=== PATIENT | male | born 1940 | race Caucasian/White ===

== ENCOUNTER → 2017-11-09 06:56 | Outpatient (CLI) | payer MEDICARE, OTHER, SELFPAY ==
[2017-11-09 08:47] LABS: Alanine Aminotransferase 32 IU/L (21-72); Albumin 4.4 g/dL (3.5-5.0); Albumin Globulin Ratio 1.6 (1.0-2.8); Alkaline Phosphatase 85 U/L (38-126); Aspartate Aminotransferase 24 IU/L (17-59); BUN Creatinine Ratio 21.1 (6-22); Bilirubin Total 0.9 mg/dL (0.2-1.3); Blood Urea Nitrogen 19 mg/dL (9-20); Calcium 9.3 mg/dL (8.4-10.2); Carbon Dioxide 30 mmol/L (22-32); Chloride 102 mmol/L (98-107); Cholesterol 172 mg/dL (140-199); Estimated Glomerular Filt Rate > 60.0 mL/min (>60); Globulin 2.7 g/dL (1.7-4.1); Glucose 95 mg/dL (80-110); HDL Cholesterol 50 mg/dL (40-60); HEMOLYSIS < 15 (0-50); LDL Cholesterol Calculated 92 mg/dL (<100); Potassium 4.9 mmol/L (3.4-5.1); Sodium 143 mmol/L (137-145); Total Protein 7.1 g/dL (6.3-8.2); Triglycerides 149 mg/dL (35-150)
== END ==
PROVIDERS: Family Provider Internal Medicine; PCP Internal Medicine; Visit Provider Internal Medicine
DX: I10 Essential (primary) hypertension (principal); Z85.820 Personal history of malignant melanoma of skin; E78.5 Hyperlipidemia, unspecified; Z12.5 Encounter for screening for malignant neoplasm of prostate
CPT/HCPCS: 36415; 80053; 80061

== ENCOUNTER → 2018-04-19 11:00 | Outpatient (CLI) | payer MEDICARE, OTHER, SELFPAY | PROVIDERS: Family Provider Internal Medicine; PCP Internal Medicine; Visit Provider Urology | DX: R97.20 Elevated prostate specific antigen [PSA] (principal) | CPT/HCPCS: 36415; 84153 ==

== ENCOUNTER → 2018-08-12 09:53 | Outpatient (CLI) | payer MEDICARE, OTHER, SELFPAY ==
[2018-08-12 12:06] LABS: Prostate Specific Antigen 5.11 ng/mL (0.10-4.00)
== END ==
PROVIDERS: PCP Internal Medicine; Visit Provider Internal Medicine
DX: R97.20 Elevated prostate specific antigen [PSA] (principal)
CPT/HCPCS: 36415; 84153

== ENCOUNTER → 2019-03-27 16:14 | Outpatient (CLI) | payer MEDICARE, OTHER, SELFPAY ==
[2019-03-27 17:50] LABS: Alanine Aminotransferase 28 IU/L (<50); Albumin 4.4 g/dL (3.5-5.0); Albumin Globulin Ratio 1.7 (1.0-2.8); Alkaline Phosphatase 70 U/L (38-126); Aspartate Aminotransferase 25 IU/L (17-59); Bilirubin Total 1.2 mg/dL (0.2-1.3); Blood Urea Nitrogen 16 mg/dL (9-20); Calcium 9.6 mg/dL (8.4-10.2); Carbon Dioxide 32 mmol/L (22-32); Chloride 101 mmol/L (98-107); Cholesterol 180 mg/dL (140-199); Estimated Glomerular Filt Rate > 60.0 mL/min (>60); Globulin 2.6 g/dL (1.7-4.1); Glucose 82 mg/dL (80-110); HDL Cholesterol 48 mg/dL (40-60); LDL Cholesterol Calculated 100 mg/dL (<100); Potassium 5.1 mmol/L (3.4-5.1); Sodium 140 mmol/L (137-145); Triglycerides 161 mg/dL (35-150)
[2019-03-27 19:19] LABS: Prostate Specific Antigen 3.45 ng/mL (0.10-4.00)
[2019-03-27 19:20] LABS: HEMOLYSIS < 15 (0-50)
== END ==
PROVIDERS: PCP Internal Medicine; Visit Provider Internal Medicine
DX: E78.5 Hyperlipidemia, unspecified (principal); I10 Essential (primary) hypertension; R97.20 Elevated prostate specific antigen [PSA]
CPT/HCPCS: 36415; 80053; 80061; 84153

== ENCOUNTER → 2019-08-07 11:27 | Outpatient (CLI) | payer MEDICARE, OTHER, SELFPAY ==
[2019-08-07 12:11] LABS: Add Manual Diff / Slide Review NO; Basophils Absolute Auto 100 /uL (0-100); Basophils Percent Auto 0.9 % (0-2); Eosinophils Absolute Auto 200 /uL (0-450); Eosinophils Percent Auto 2.5 % (2-4); Hematocrit 44.4 % (41-53); Hemoglobin 14.8 g/dL (13.5-17.5); Lymphocytes Absolute Auto 1300 /uL (1100-4500); Lymphocytes Percent Auto 15.5 % (25-40); Mean Corpuscular HGB Conc 33.4 % (30-36); Mean Corpuscular Hemoglobin 30.3 PG (26-34); Mean Corpuscular Volume 90.7 fL (80-100); Monocytes Absolute Auto 500 /uL (0-900); Neutrophils Absolute Auto 6200 /uL (1500-7000); Neutrophils Percent Auto 75.1 % (50-75); Platelet Count 184 X10^3/uL (150-400); Red Blood Cell Count 4.89 X10^6/uL (4.5-5.9); Red Cell Distribution Width 13.7 % (11.6-14.8); White Blood Cell Count 8.2 X10^3/uL (4.5-11.0)
[2019-08-07 12:21] LABS: Erythrocyte Sedimentation Rate 8 MM/HR (0-15)
[2019-08-07 12:38] LABS: Alanine Aminotransferase 25 IU/L (<50); Albumin 4.5 g/dL (3.5-5.0); Albumin Globulin Ratio 1.5 (1.0-2.8); Alkaline Phosphatase 88 U/L (38-126); Aspartate Aminotransferase 29 IU/L (17-59); BUN Creatinine Ratio 18.8 (6-22); Blood Urea Nitrogen 15 mg/dL (9-20); Calcium 9.5 mg/dL (8.4-10.2); Carbon Dioxide 28 mmol/L (22-32); Chloride 103 mmol/L (98-107); Estimated Glomerular Filt Rate > 60.0 mL/min (>60); Globulin 3.1 g/dL (1.7-4.1); Glucose 106 mg/dL (80-110); HEMOLYSIS < 15 (0-50); Potassium 4.5 mmol/L (3.4-5.1); Sodium 139 mmol/L (137-145); Total Protein 7.6 g/dL (6.3-8.2)
[2019-08-07 12:39] LABS: C-Reactive Protein Quant < 0.5 mg/dL (<1.0)
== END ==
PROVIDERS: PCP Internal Medicine; Referring Provider Internal Medicine; Visit Provider Internal Medicine
DX: I63.9 Cerebral infarction, unspecified (principal)
CPT/HCPCS: 36415; 80053; 85025; 85651; 86140

== ENCOUNTER 2019-08-07 15:25 | Emergency (ER) | payer MEDICARE, OTHER, SELFPAY ==
--- NOTE | 2019-08-07 15:36 | ED_ITS ---
HPI - Dizziness General Chief Complaint: Dizziness Stated Complaint: WEAKNESS LIGHT HEADED THINKS STROKE Time Seen by Provider: 08/07/19 15:34 Source: patient Mode of arrival: Ambulatory Limitations: no limitations History of Present Illness HPI Narrative: This is a 79-year-old male who comes emergency department with complaint of an episode on Wednesday that he thinks may have been a stroke patient states he was in his garage she felt weak and had to lean up against a wall. He states that he started to black out with his vision. He states he did not pass out but it lasted about 3 or 4 seconds. He has continued to feel lightheaded. He states like maybe balance is off but he states that is been going on for a long time and does not seem to be majorly changed. He denies headache, states he has had some slow vision changes but nothing acute. He denies any facial droop no issues with speech. No numbness, tingling or weakness. No chest pain or shortness of breath. No nausea, no vomiting no issues with bowel movements or urination he spoke with his primary care who has set up an MRI as well as carotid ultrasounds for tomorrow morning and they are T scheduled. He also had lab work drawn earlier today. He has a history of dyslipidemia, essential tremor takes an aspirin daily and has enlarged prostate. He states he has has appendix out and had dental surgery. He denies tobacco, drinks 1 alcoholic drink daily and denies any illicit. He does state his father had a stroke and had a carotid endarterectomy prior to his stroke. He does not feel that his symptoms are worsening. Related Data Home Medications Medication Instructions Recorded Confirmed ASPIRIN (#ASPIRIN) 81 mg PO Q DAY #0 02/24/11 04/06/19 MULTIVITAMIN (One Daily #0 02/24/11 04/06/19 Multivitamin) OMEPRAZOLE 20 mg PO Q DAY #0 03/03/12 04/06/19 chlorhexidine gluconate 0.12 % 1 applictn PO DAILY ml 08/12/18 04/06/19 mouthwash fluoride (sodium) 1.1 % dental 1 applictn DENTAL BID gram 08/12/18 04/06/19 cream saw palmetto 500 mg capsule 500 mg PO DAILY cap 08/12/18 04/06/19 albuterol sulfate 90 mcg/actuation 1 puff INHALATION SEE INSTRUCTIONS 03/27/19 04/06/19 aerosol inhaler PRN gram beclomethasone dipropionate 80 See Rx Instructions INHALATION BID 03/27/19 04/06/19 mcg/actuation aerosol inhaler PRN inhalation turmeric 400 mg capsule 800 mg PO DAILY cap 04/06/19 04/06/19 Previous Rx's Medication Instructions Recorded tamsulosin 0.4 mg capsule 0.4 mg PO BID #180 tab 10/24/18 rosuvastatin 40 mg tablet See Rx Instructions .ROUTE 04/17/19 .COMPLEX #90 tablet primidone 50 mg tablet 50 mg PO BEDTIME #90 tab 05/22/19 Allergies Allergy/AdvReac Type Severity Reaction Status Date / Time No Known Allergies Allergy Uncoded 04/06/19 13:32 Review of Systems Review of Systems ROS Unobtainable: All systems reviewed & are unremarkable except as noted in HPI and below Patient History Medical History Lala's esophagus (Chronic) Benign prostatic hyperplasia with urinary obstruction (Chronic 10/24/13) Cardiac arrhythmia (Chronic) Elevated prostate specific antigen (PSA) (Chronic 08/20/15) Essential hypertension (Chronic) Essential tremor (Chronic 02/22/17) Gastroesophageal reflux disease (Chronic) History of malignant melanoma (Inactive 02/16/14) Hyperlipidemia (Chronic 09/26/13) Mild intermittent asthma without complication (Chronic 06/29/13) Surgical History History of esophagogastroduodenoscopy (EGD) (Resolved 01/27/17) Status post appendectomy (Resolved) Status post tonsillectomy and adenoidectomy (Resolved) Social History marital status: number of children: 2 (4 total.) household members: spouse lives independently: Yes caregiver/support person: No housing: house pets and animals: No education level: college occupational status: other (Retired) current occupational exposures/hazards: No Previous occupational history: Sales [employer]ational: [employer] leisure activities: other (turner and former automatic, [employer], religious.) Smoking Status: Former smoker Tobacco: How many years used: 25 Smokeless tobacco user: other (Cigarettes) quit status: quit date established (~1996) second hand exposure: No alcohol intake: current (Drink every 5 days.) substance use type: does not use Smoking Status: Former smoker Exam Narrative Exam Narrative: GEN: well nourished, well appearing male, alert and oriented x 3, patient appears to be in mild distress. HEENT: Atraumatic, pupils are equal round reactive to light, extraocular movements are intact, nares are clear, TMs are clear with no fluid, there is no conjunctival pallor. Throat is clear without any exudates, erythema, tonsillar enlargement or uvular deviation, no facial droop. HEART: Regular rate and rhythm without murmur, clicks, rubs. LUNGS:Lungs clear to auscultation, no wheezes, rales, crackles, chest moves symmetrically ABD:bowel sounds normal, soft, non-tender, no guarding, rebound, rigidity, no masses noted, no hepatosplenomegaly :No CVA tenderness MSCL: Non-tender, no muscle atrophy, muscles strength 5/5 upper and lower extremities, full range of motion, normal gait NEURO:CN 2-12 intact, sensation normal, reflexes 2/4 upper and lower extremities. finger nose finger test normal, heel harrison test normal SKIN: no rash, no erythema, no petechiea Initial Vital Signs Initial Vital Signs: Vital Signs Temperature 98.1 F 08/07/19 15:38 Pulse Rate 98 H 08/07/19 15:38 Respiratory Rate 13 08/07/19 15:38 Blood Pressure 169/74 H 08/07/19 15:38 Pulse Oximetry 98 08/07/19 15:38 Scores NIH Stroke Scale Level of Conciousness: Alert, keenly responsive Ask month/age: Answers both questions correctly. Open/close eyes, close hand: Performs both tasks correctly Best gaze horizontal: Normal Visual cheung: No visual loss Facial palsy: Normal symetrical movement Left arm drift: No drift for full 10 sec Right arm drift: No drift for full 10 sec Left leg drift: No drift for full 10 sec Right leg drift: No drift for full 10 sec Limb ataxia: Absent Sensory on face/arms/legs: Normal, no sensory loss Best language: No aphasia, normal Dysarthria: Normal Extinction or inattention: No abnormality Total NIH Stroke scale score: 0 Course Orders Ordered: ED Orders 08/07/19 15:40 Troponin I Stat 08/07/19 15:47 EKG-12 Lead Stat 08/07/19 16:04 CT head/brain wo con Stat XR chest 1V Stat Discontinued Medications Sodium Chloride (Normal Saline 0.9%) 1,000 mls @ 1,000 mls/hr IV BOLUS ONE Stop: 08/07/19 17:02 Last Admin: 08/07/19 16:34 Dose: 1,000 mls/hr Documented by: JOHANNY Vital Signs Vital signs: Vital Signs - 8 hr 08/07/19 15:38 08/07/19 16:49 Temperature 98.1 F Pulse Rate 98 H 79 Respiratory Rate 13 16 Blood Pressure 169/74 H Blood Pressure [Right Arm] 127/60 Pulse Oximetry 98 95 MDM - Dizziness Lab Data Labs: Lab Results 08/07/19 Range/Units 15:40 Troponin I < 0.012 (0.01-0.034) ng/mL Imaging Data CT scan - head: Radiologist's Impression: Arsenio Granda 79 M 1940 [place] [address] CT Scan Report Signed Patient: Arsenio Granda EMR#: [id number] : 2Acct:[id number] Age/Sex: 79 / MDate of Service: 08/07/19 Loc: ED Accession Number: [id number] Procedure: CT head/brain wo con Ordering Provider: Tammi Rodriguez D.O. PROCEDURE: CT HEAD/BRAIN WO CON INDICATIONS: dizziness, presyncope TECHNIQUE: Noncontrast 4.5 mm thick angled axial sections acquired from the foramen magnum to the vertex, with coronal and sagittal reformats. For radiation dose reduction, the following was used: automated exposure control, adjustment of mA and/or kV according to patient size. COMPARISON: None. FINDINGS: Image quality: Excellent. CSF spaces: Basal cisterns are patent. No extra-axial fluid collections. The ventricles are symmetric in size and shape. Brain: No intracranial bleeds or masses. There is cerebral volume loss for age, with resultant ventricular and sulcal prominence. There are periventricular and deep white matter chronic small vessel ischemic changes. There is intracranial internal carotid artery atherosclerosis. Skull and face: Calvarium and visualized facial bones appear intact, without suspicious lesions. Sinuses: Visualized sinuses and mastoids are clear. IMPRESSION: No acute intracranial findings. Dictated by: Zoie Nolen M.D. on 08/07/2019 at 16:19 Approved by: Zoie Nolen M.D. on 08/07/2019 at 16:20 Chest x-ray: Radiologist's Impression: Arsenio Granda M [address] [address] XRay Report Signed Patient: Arsenio Granda EMR#: [id number] : 1940cct:[id number] Age/Sex: 79 / MDate of Service: 08/07/19 Loc: ED Accession Number: [id number] Procedure: XR chest 1V Ordering Provider: Tammi Rodriguez D.O. PROCEDURE: XR CHEST 1V INDICATIONS: dizziness, presyncope TECHNIQUE: One view of the chest was acquired. COMPARISON: [facility], CHEST 2 VIEW, 12/09/2015, 14:57. FINDINGS: Surgical changes and devices: None. Lungs and pleura: Lungs are clear. No pleural effusions or pneumothorax. Mediastinum: Mediastinal contours appear normal. Heart size is normal. Bones and chest wall: No suspicious bony lesions. Overlying soft tissues appear unremarkable. IMPRESSION: No acute cardiopulmonary findings. Dictated by: Zoie Nolen M.D. on 08/07/2019 at 16:17 Approved by: Zoie Nolen M.D. on 08/07/2019 at 16:18 ECG Data Attestation: I personally reviewed and interpreted this ECG as follows: Interpretation: Sinus rhythm with supraventricular complexes. Rate of 86, P are 155, QRS of 93 and QTC of 405. No ST elevation is noted. No consistent ST depression is noted. MDM Narrative Medical decision making narrative: Patient has when he describes and sounds more like a presyncopal type episode than stroke-like episode. His NIH is 0. Head CT and chest x-ray are negative. Troponin is negative, CBC and CMP obtained today but prior to ER visit do not show acute findings. EKG does not show any arrhythmias are clear changes. Discussed patient's findings here today with Dr. Esquivel who has already ordered an MRI and carotid ultrasounds and is scheduled for tomorrow morning. Patient's findings are more consistent with a presyncopal type episode but does seem appropriate to workup additionally. Patient's vital signs are appropriate here, he is able to ambulate the department without any issue and we discussed signs and symptoms to watch for and reasons to return. Discharge Plan Departure Patient Disposition: Home Clinical Impression: Pre-syncope Discharge Date/Time: 08/07/19 17:11 Instructions: DI for Dizziness-Nonvertigo Activity Restrictions/Additional Instructions: Follow up at your appointment tomorrow for MRI and carotid US. Your imaging and labs from today do not show any acute findings. Return to the emergency department for new or worsening symptoms passing-out worsening lightheadedness, new vision changes, new chest pain, shortness of breath, persistent vomiting, black or bloody stools, new numbness, weakness or tingling or other new or concerning symptoms. Prescriptions: No Action ASPIRIN (#ASPIRIN) 81 mg PO Q DAY Qty: 0 RF: 0 MULTIVITAMIN (One Daily Multivitamin) Qty: 0 RF: 0 OMEPRAZOLE 20 mg PO Q DAY Qty: 0 RF: 0 tamsulosin [Flomax] 0.4 mg capsule 0.4 mg PO BID Qty: 180 RF: 3 rosuvastatin 40 mg tablet See Rx Instructions .ROUTE .COMPLEX Qty: 90 RF: 3 primidone 50 mg tablet 50 mg PO BEDTIME Qty: 90 RF: 1 Qvar 80 mcg/actuation aerosol See Rx Instructions inhalation BID PRNRF: 0 albuterol sulfate [Proventil HFA] 90 mcg/actuation HFA aerosol inhaler 1 puff inhalation SEE INSTRUCTIONS PRNRF: 0 turmeric 400 mg capsule 800 mg PO DAILY RF: 0 Denta 5000 Plus 1.1 % cream 1 applictn Dental BID RF: 0 chlorhexidine gluconate 0.12 % mouthwash 1 applictn PO DAILY RF: 0 saw palmetto 500 mg capsule 500 mg PO DAILY RF: 0 Referrals: Henok Esquivel MD [Primary Care Provider] -
[2019-08-07 15:38] VITALS: BP 169/74; PULSE 98; RESP 13; TEMP 36.7; O2SAT 98
--- NOTE | 2019-08-07 16:04 | DI.CT.S_ITS ---
PROCEDURE: CT HEAD/BRAIN WO CON INDICATIONS: dizziness, presyncope TECHNIQUE: Noncontrast 4.5 mm thick angled axial sections acquired from the foramen magnum to the vertex, with coronal and sagittal reformats. For radiation dose reduction, the following was used: automated exposure control, adjustment of mA and/or kV according to patient size. COMPARISON: None. FINDINGS: Image quality: Excellent. CSF spaces: Basal cisterns are patent. No extra-axial fluid collections. The ventricles are symmetric in size and shape. Brain: No intracranial bleeds or masses. There is cerebral volume loss for age, with resultant ventricular and sulcal prominence. There are periventricular and deep white matter chronic small vessel ischemic changes. There is intracranial internal carotid artery atherosclerosis. Skull and face: Calvarium and visualized facial bones appear intact, without suspicious lesions. Sinuses: Visualized sinuses and mastoids are clear. IMPRESSION: No acute intracranial findings. Dictated by: Zoie Nolen M.D. on 08/07/2019 at 16:19 Approved by: Zoie Nolen M.D. on 08/07/2019 at 16:20
--- NOTE | 2019-08-07 16:04 | DI.RAD.S_ITS ---
PROCEDURE: XR CHEST 1V INDICATIONS: dizziness, presyncope TECHNIQUE: One view of the chest was acquired. COMPARISON: [facility], , CHEST 2 VIEW, 12/09/2015, 14:57. FINDINGS: Surgical changes and devices: None. Lungs and pleura: Lungs are clear. No pleural effusions or pneumothorax. Mediastinum: Mediastinal contours appear normal. Heart size is normal. Bones and chest wall: No suspicious bony lesions. Overlying soft tissues appear unremarkable. IMPRESSION: No acute cardiopulmonary findings. Dictated by: Zoie Nolen M.D. on 08/07/2019 at 16:17 Approved by: Zoie Nolen M.D. on 08/07/2019 at 16:18
[2019-08-07 16:31] LABS: Troponin I < 0.012 ng/mL (0.01-0.034)
[2019-08-07] MEDS: SODIUM CHLORIDE 0.9% 1,000 ML 1000 ML IV (16:34)
[2019-08-07 16:49] VITALS: BP 127/60; PULSE 79; RESP 16; O2SAT 95
== END 2019-08-07 17:11 | disposition home or self-care (01) ==
PROVIDERS: Emergency Provider Emergency Medicine; PCP Internal Medicine
DX: R55 Syncope and collapse (principal); R42 Dizziness and giddiness; N40.0 Benign prostatic hyperplasia without lower urinary tract symptoms; Z79.82 Long term (current) use of aspirin; I63.9 Cerebral infarction, unspecified
CPT/HCPCS: 36415; 70450; 71045; 80053; 84484; 85025; 85651; 86140; 93005; 99284; 99285

== ENCOUNTER → 2019-08-08 08:56 | Outpatient (CLI) | payer MEDICARE, OTHER, SELFPAY ==
--- NOTE | 2019-08-08 08:57 | DI.US.S_ITS ---
PROCEDURE: US CAROTID DOPPLER BI INDICATIONS: CVA TECHNIQUE: Color and pulse Doppler interrogation was performed of both carotid systems, with image documentation and velocity measurements. COMPARISON: None. FINDINGS: Stenosis calculations are based on SRU (Society of Radiologists in Ultrasound) criteria. Right side: Brachial blood pressure: 131/74 mm Hg. Common carotid artery peak systolic velocity: 81 cm/sec. Internal carotid artery peak systolic velocity: 96 cm/sec. Internal carotid artery end diastolic velocity: 31 cm/sec. External carotid artery peak systolic velocity: 75 cm/sec. ICA/CCA peak systolic ratio: 1.2. Rahman scale imaging description: Mild soft and calcific plaquing Percent internal carotid artery stenosis: Less than 50% stenosis. Vertebral artery: Flow direction is antegrade. Left side: Brachial blood pressure: 134/74 mm Hg. Common carotid artery peak systolic velocity: 114 cm/sec. Internal carotid artery peak systolic velocity: 88 cm/sec. Internal carotid artery end diastolic velocity: 32 cm/sec. External carotid artery peak systolic velocity: 82 cm/sec. ICA/CCA peak systolic ratio: 0.8. Rahman scale imaging description: Mild calcific and soft plaque Percent internal carotid artery stenosis: Less than 50% stenosis. Vertebral artery: Flow direction is antegrade. IMPRESSION: Less than 50% stenosis at the proximal internal carotid arteries bilaterally. Vertebral arterial flow is antegrade in direction bilaterally. Dictated by: Jhonathan Barreto M.D. on 08/08/2019 at 10:49 Approved by: Jhonathan Barreto M.D. on 08/08/2019 at 10:51
--- NOTE | 2019-08-08 08:57 | DI.MRI.S_ITS ---
PROCEDURE: MR STROKE Pre- and post-contrast brain MRI, non-contrast brain MR angiogram, pre- and postcontrast neck MR angiogram INDICATIONS: stroke protocol TECHNIQUE: Brain: Noncontrast axial T1 spin echo, axial T2 fast spin echo, sagittal and axial FLAIR, coronal T2 fast spin echo, axial gradient echo, axial diffusion and ADC through the brain. After the administration of contrast, axial 3D VIBE of the cranial vasculature and brain. Brain MRA: Non-contrast 3-D time of flight MR angiogram, with multiple osyynbh-whfppuyql-oqytcchxzz (MIP) reformats performed. Neck MRA: Axial and sagittal TruFISP through the neck. Coronal dynamic MR angiogram during administration of contrast in the arterial and venous phases, with 3-dimenstional igccgmp-tnfglzwwu-mvseyvgwyz (MIP) reformats constructed from subtraction images. COMPARISON: [facility], CT, CT HEAD/BRAIN WO CON, 08/07/2019, 16:03. FINDINGS: Image quality: Excellent. BRAIN: CSF spaces: Ventricles are normal in size and shape. Basal cisterns are patent. No extra-axial fluid collections. Brain: No intracranial bleeds or mass effects. There is mild diffuse cerebral volume loss. Rahman-white matter interface is normal. Diffusion weighted images show no acute ischemic insults. Brainstem appears normal. Normal intravascular flow voids are present. No abnormal intracranial enhancement. Skull and face: Calvarial marrow signal is normal. Orbits appear normal. Sinuses: There is mild bilateral maxillary sinus mucosal thickening. Mastoids are clear. The BRAIN MR ANGIOGRAM: Anterior circulation: Intracranial internal carotid arteries are normal in size and enhancement. The flow within the paired anterior cerebral arteries is normal and symmetric. The flow within the middle cerebral arteries is normal and symmetric. The anterior communicating artery is seen. No stenoses, occlusions, or aneurysms. Posterior circulation: The distal right vertebral artery is not well-seen, possibly terminating in a posterior inferior cerebellar artery. Basilar artery is patent. The flow within the posterior cerebral arteries is normal and symmetric. No stenoses, occlusions, or aneurysms. NECK MR ANGIOGRAM: Carotids: Great vessels demonstrate a conventional anatomy as they arise from the aortic arch. The origins of the common carotid arteries appear patent. The calibers and courses of both common carotid arteries are normal. The bifurcation regions appear normal bilaterally. The internal carotid arteries demonstrate normal course and caliber. Posterior circulation: The origins of the vertebral arteries appear patent. Distal right vertebral artery it appears to terminate in a posterior inferior cerebellar artery. Distal left vertebral artery is patent. Basilar artery is patent. Miscellaneous: Subclavian arteries appear patent. Pre-contrast images through the neck demonstrate bilateral thyroid nodules measuring less than 10 mm diameter. The IMPRESSION: BRAIN MRI: 1. No acute process. No recent infarct. 2. Mild diffuse cerebral volume loss. 3. Mild maxillary sinus mucosal thickening bilaterally. BRAIN MR ANGIOGRAM: Negative cerebral MR angiography. NECK MR ANGIOGRAM: 1. No internal carotid artery stenosis bilaterally. 2. Patent bilateral vertebral arteries. Dictated by: Alesha Nolasco M.D. on 08/08/2019 at 10:43 Approved by: Alesha Nolasco M.D. on 08/08/2019 at 10:47
== END ==
PROVIDERS: PCP Internal Medicine; Referring Provider Internal Medicine; Visit Provider Internal Medicine
DX: I63.9 Cerebral infarction, unspecified (principal); I65.23 Occlusion and stenosis of bilateral carotid arteries
CPT/HCPCS: 70548; 70553; 93880

== ENCOUNTER → 2019-10-19 07:50 | Outpatient (CLI) | payer MEDICARE, OTHER, SELFPAY ==
[2019-10-19 08:14] LABS: Add Manual Diff / Slide Review NO; Basophils Absolute Auto 100 /uL (0-100); Basophils Percent Auto 0.7 % (0-2); Eosinophils Absolute Auto 600 /uL (0-450); Eosinophils Percent Auto 6.8 % (2-4); Hematocrit 44.4 % (41-53); Hemoglobin 15.3 g/dL (13.5-17.5); Lymphocytes Absolute Auto 1500 /uL (1100-4500); Lymphocytes Percent Auto 17.9 % (25-40); Mean Corpuscular HGB Conc 34.4 % (30-36); Mean Corpuscular Hemoglobin 31.3 PG (26-34); Monocytes Absolute Auto 500 /uL (0-900); Monocytes Percent Auto 5.9 % (3-14); Neutrophils Absolute Auto 5800 /uL (1500-7000); Neutrophils Percent Auto 68.7 % (50-75); Platelet Count 184 X10^3/uL (150-400); Red Blood Cell Count 4.88 X10^6/uL (4.5-5.9); Red Cell Distribution Width 13.4 % (11.6-14.8); White Blood Cell Count 8.5 X10^3/uL (4.5-11.0)
[2019-10-19 08:47] LABS: Alanine Aminotransferase 26 IU/L (<50); Albumin 4.7 g/dL (3.5-5.0); Alkaline Phosphatase 80 U/L (38-126); Aspartate Aminotransferase 25 IU/L (17-59); BUN Creatinine Ratio 18.2 (6-22); Bilirubin Total 1.1 mg/dL (0.2-1.3); Blood Urea Nitrogen 16 mg/dL (9-20); Calcium 9.8 mg/dL (8.4-10.2); Carbon Dioxide 31 mmol/L (22-32); Chloride 101 mmol/L (98-107); Estimated Glomerular Filt Rate > 60.0 mL/min (>60); Globulin 2.4 g/dL (1.7-4.1); Glucose 134 mg/dL (80-110); HEMOLYSIS < 15 (0-50); Magnesium 2.2 mg/dL (1.6-2.3); Potassium 4.1 mmol/L (3.4-5.1); Sodium 137 mmol/L (137-145); Total Protein 7.1 g/dL (6.3-8.2)
[2019-10-19 09:16] LABS: TSH w/ Reflex to FT4 1.94 uIU/mL (0.47-4.68)
== END ==
PROVIDERS: PCP Internal Medicine; Referring Provider Internal Medicine; Visit Provider Internal Medicine
DX: I10 Essential (primary) hypertension (principal); I49.1 Atrial premature depolarization
CPT/HCPCS: 36415; 80053; 83735; 84443; 85025

== ENCOUNTER → 2019-10-30 11:00 | Outpatient (CLI) | payer MEDICARE, OTHER, SELFPAY ==
--- NOTE | 2019-11-16 09:24 | PM.CARDMON.1 ---
Inside Sales Person Report Referral & Results Date Patient Seen: 10/30/19 Requesting provider: Henok Esquivel Indication: Cardiac arrhythmia Duration of monitoring (days): 7 Diary information: There were 2 patient triggered events and 2 patient diary entries These events were variously associated (within 45 seconds) with sinus rhythm, supraventricular ectopic beats, ventricular ectopic beats and a run of ventricular trigeminy Data: Minimum heart rate identified was 45 beats per minute at 02:11 on 10/31/2019 Maximum sinus heart rate was 133 beats per minute at 08:55 on 11/03/2019 Maximum overall heart rate was 187 beats per minute at 08:00 on 11/05/2019, during a 5 beat run of SVT Patient had rare PACs but more occasional PVCs including about 3.1% of identified beats and a 30.2nd run of ventricular trigeminy and a 12nd run of ventricular bigeminy Patient had 11 runs of SVT/atrial tachycardia with the fastest being 187 beats per minute during a 5 beat run, as above. The longest was 7 beats at a rate of 110 beats per minute which is more likely atrial tachycardia The computer identified episodes of second-degree AV block Mobitz type 1 however upon closer review I am not convinced these were actually second-degree AV block, rather more likely sinus arrhythmia Impression: Significant burden of PVCs but otherwise no significant dysrhythmias identified Clinical correlation suggested
== END ==
PROVIDERS: Family Provider Internal Medicine; PCP Internal Medicine; Referring Provider Internal Medicine; Visit Provider Internal Medicine
DX: I49.9 Cardiac arrhythmia, unspecified (principal)
CPT/HCPCS: 0296T; 0298T

== ENCOUNTER → 2019-11-03 11:37 | Outpatient (CLI) | payer MEDICARE, OTHER, SELFPAY ==
[2019-11-03 22:29] LABS: COVID19 Sendout Not Detected (Not Detect)
== END ==
PROVIDERS: Family Provider Internal Medicine; PCP Internal Medicine; Visit Provider Nurse Practitioner
DX: Z01.812 Encounter for preprocedural laboratory examination (principal)
CPT/HCPCS: 87635

== ENCOUNTER → 2019-11-06 09:59 | Outpatient (CLI) | payer MEDICARE, OTHER, SELFPAY ==
--- NOTE | 2019-11-06 10:01 | DI.NM.S_ITS ---
PROCEDURE: NM VIKTOR PERF SPECT REST & STR Rest and exercise myocardial perfusion SPECT with gated imaging and ejection fraction RADIOPHARMACEUTICAL: 9.8 mCi Tc-99m sestamibi IV at rest and 25.7 mCi Tc-99m sestamibi IV at peak exercise. A oneday-protocol was performed. INDICATIONS: chest pain TECHNIQUE: Radiopharmaceutical was injected at peak stress test, and also at rest. SPECT images were obtained. SPECT myocardial perfusion images were displayed in short axis, horizontal long axis, and vertical long axis views. Gated images were reviewed using [employer] software. COMPARISON: None. CARDIAC STRESS: A standard Alex treadmill exercise tolerance test was performed by the patient under the supervision of an attending staff. The patient exercised for 2 minutes and 57 seconds; functional aerobic impairment (AYDEN) is +39%. Hemodynamic data: There is normal blood pressure and heart rate response to exercise stress. Patient achieved 117% of maximum predicted heart rate at peak exercise. Symptoms: Patient denied chest pain during exercise. EKG: No diagnostic EKG changes of ischemia; occasional PACs with exercise. FINDINGS: Raw data: There is good myocardial labeling by radiotracer. No significant motion artifacts. Hwmd-xw-hamhj ratio is 0.33 (normal is less than 0.38 for sestamibi tracer, and less than 0.50 for thallium tracer). Left ventricle function: Gated images demonstrate normal left ventricle wall thickening. No segmental wall motion abnormality. No transient ischemic dilation; TID is 1.02 (normal less than 1.3). The left ventricle resting end-diastolic volume is 139 mL. Left ventricle stress ejection fraction is 52%; normal values are above 45%. Myocardial perfusion: Severe fixed inferior wall defect that resolves with prone imaging suggesting diaphragmatic attenuation. No ischemia or infarction. IMPRESSION: Low risk, normal treadmill nuclear stress test Borderline hypertensive response to exercise. 1) No perfusion evidence of ischemia or infarction. 2) Normal left ventricular size, wall motion, and systolic function (EF post stress 52%). 3) No ECG evidence of ischemia. 4) No angina during the study. 5) Moderately to severely reduced exercise capacity (4.6 METS, AYDEN +39%). Target heart rate reached. 6) Borderline hypertensive response to exercise (rest BP 124/74mmHg, max BP 210/90mmHg). 7) No prior nuclear stress test available for comparison. Dictated by: Ana Smith MD on 11/06/2019 at 16:38 Approved by: Ana Smith MD on 11/06/2019 at 16:43
--- NOTE | 2019-11-06 14:54 | PM.TREADMILL ---
Cardiac Stress Test Report Referral & Results Date Patient Seen: 11/06/19 Requesting provider: Henok Esquivel Indication: Dyspnea, dysrhythmia Rest ECG: Unremarkable Procedure Note: Today following both written and verbal informed consent the patient was exercised according to a standard Alex protocol patient went for a total of 2 minutes 57 seconds achieving a maximum heart rate of 168 maximum systolic blood pressure of 210. This is approximately 4.6 METS. Exercise was terminated at this point because of targets were met patient was unable to continue. Patient was also given Cardiolite through a previously started Hep-Lock IV by the diagnostic imaging staff approximately 1 minute prior to the cessation of exercise. With exercise or no ST-T segment changes Patient had scattered PVCs including ventricular couplets. Patient also showed evidence of apparently conducted sinus beats in his PVC pattern. There also rare PACs in recovery Functional aerobic impairment rates 40% on the sedentary scale, 50% on the active scale Impression: No obvious ischemia. Dysrhythmias above Please see perfusion imaging report for details regarding ischemia Limited exercise capacity as above Please note: Actual ECG tracings can be found in the PACS system.
== END ==
PROVIDERS: Family Provider Internal Medicine; PCP Internal Medicine; Referring Provider Internal Medicine; Visit Provider Internal Medicine
DX: R07.9 Chest pain, unspecified (principal); I49.1 Atrial premature depolarization; I10 Essential (primary) hypertension; R06.00 Dyspnea, unspecified
CPT/HCPCS: 78452; 93016; 93017; 93018; A9502

== ENCOUNTER → 2019-11-22 13:43 | Outpatient (CLI) | payer MEDICARE, OTHER, SELFPAY ==
--- NOTE | 2019-11-22 13:54 | DI.ECHO.S_ITS ---
Echocardiogram Report + + :Name: SIVAKUMAR LANDON Study Date: 11/22/2019 Height: 71 in : :[facility] Weight: 191 lb : : Gender: Male BSA: 2.1 m2 : :: 1940 Age: 79 yrs BP: 138/70 mmHg: :Reason For Study: CHEST PAIN : :Ordering Physician: GABI, : :ALEJANDRO Performed By: Joana Rincon : :Referring: ALEJANDRO ASHLEY R : + + Interpretation Summary The left ventricle is normal in size and wall thickness. Left ventricular systolic function is mildly reduced. The ejection fraction is estimated to be 40-45%. There is mild global hypokinesis of the left ventricle. Diastolic parameters suggest a relaxation abnormality of the left ventricle, consistent with probable normal filling pressures. The right ventricle is normal in size and function. The right ventricular systolic pressure is estimated to be at least 17 mmHg based on an estimated right atrial pressure of 3 mm Hg. The left atrium is mildly dilated. The right atrium is mildly dilated. There is no significant valvular heart disease. The aortic root is normal size. Procedure: A two-dimensional transthoracic echocardiogram with color flow and Doppler was performed. The study quality was technically adequate. There is no prior echocardiogram noted for this patient. The heart rate ranged between 62-75 bpm during the study. The patient had occasional PACs during the exam. The patient had occasional PVCs during the exam. Left Ventricle: The left ventricle is normal in size and wall thickness. Left ventricular systolic function is mildly reduced. The ejection fraction is estimated to be 40-45%. Left ventricular global longitudinal strain average is -15.0%. There is mild global hypokinesis of the left ventricle. Diastolic parameters suggest a relaxation abnormality of the left ventricle, consistent with probable normal filling pressures. Right Ventricle: The right ventricle is normal in size and function. Atria: The left atrium is mildly dilated. The right atrium is mildly dilated. There is no Doppler evidence for an interatrial shunt. Mitral Valve: The mitral valve is normal in structure and function. There is trace mitral regurgitation. Aortic Valve: The aortic valve is trileaflet. The aortic valve opens well. There is no aortic valve stenosis. No aortic regurgitation is present. Tricuspid Valve: The tricuspid valve is normal in structure and function. There is mild tricuspid regurgitation. The right ventricular systolic pressure is estimated to be at least 17 mmHg based on an estimated right atrial pressure of 3 mm Hg. Pulmonic Valve: The pulmonic valve is normal in structure and function. There is no pulmonic valvular regurgitation. There is no significant valvular heart disease. Great Vessels: The aortic root is normal size. The ascending aorta could not be visualized. The IVC is of normal diameter and collapses greater than 50% with a sniff. This suggests a low right atrial pressure of 3 mm Hg. Pericardium/ Pleura There is no pericardial effusion. There is no pleural effusion. MMode/2D Measurements & Calculations LVIDd: 5.6 cm LVOT diam: 2.3 cm LVIDs: 4.7 cm Ao root diam: 2.9 cm FS: 16.5 % EPSS: 1.0 cm IVSd: 1.0 cm LVPWd: 1.0 cm LV bishop. diameter/BSA (cm/m^2): 2.7 LV sys. diameter/BSA (cm/m^2): 2.3 LA A2 area: 22.6 cm2 RA long axis: 5.3 cm LA A4 area: 22.0 cm2 RA area: 21.3 cm2 LA length (vol): 5.3 cm RA vol: 73.8 ml LA vol: 79.1 ml RA : 35.7 ml/m2 LA vol index: 38.3 ml/m2 IVC diam: 1.8 cm RVD1 (basal): 3.3 cm TAPSE: 2.1 cm Doppler Measurements & Calculations Ao V2 max: 110.1 cm/sec LVOT Max Eagle: 76.7 cm/sec Ao V2 mean: 79.9 cm/sec LV V1 max P.4 mmHg Ao max P.8 mmHg LV V1 VTI: 16.6 cm Ao mean P.8 mmHg STEFFEN(I,D): 3.0 cm2 Ao V2 VTI: 22.8 cm STEFFEN(V,D): 2.8 cm2 sev ratio: 0.73 STEFFEN indexed to BSA (cm^2/m^2): 1.4 MV E max eagle: 66.5 cm/sec TR max eagle: 189.8 cm/sec MV A max eagle: 86.9 cm/sec TR max P.4 mmHg MV E/A: 0.77 PA V2 max: 69.0 cm/sec Med Peak E' Eagle: 8.7 cm/sec PA V2 mean: 49.9 cm/sec E/E' med: 7.6 PA mean P.1 mmHg Lat Peak E' Eagle: 6.8 cm/sec PA pr(Accel): 27.6 mmHg E/E' lat: 9.8 E/e' average: 8.7 MV dec time: 0.24 sec SV(LVOT): 67.4 ml Reading Physician:05:03 PM
== END ==
PROVIDERS: Family Provider Internal Medicine; PCP Internal Medicine; Referring Provider Internal Medicine; Visit Provider Internal Medicine
DX: I07.1 Rheumatic tricuspid insufficiency (principal); R07.9 Chest pain, unspecified; I49.1 Atrial premature depolarization; I10 Essential (primary) hypertension
CPT/HCPCS: 93306

== ENCOUNTER → 2020-06-25 10:57 | Outpatient (CLI) | payer MEDICARE, OTHER, SELFPAY | PROVIDERS: Family Provider Internal Medicine; PCP Internal Medicine; Referring Provider Specialist; Visit Provider Specialist | DX: R97.20 Elevated prostate specific antigen [PSA] (principal) | CPT/HCPCS: 36415; 84153 ==

== ENCOUNTER 2020-07-24 06:03 | Emergency (ER) | payer MEDICARE, OTHER, SELFPAY ==
[2020-07-24] VITALS (13 sets, daily range): BP systolic 115–176; BP diastolic 56–79; PULSE 59–82; RESP 11–25; TEMP 36.6; O2SAT 94–98; BMI 26.3
--- NOTE | 2020-07-24 06:19 | ED_ITS ---
HPI - Arrhythmia/Palpitations <Arsenio Rios, DO - Last Filed: 07/24/20 17:57> General Chief Complaint: Arrhythmia/Palpitations Stated Complaint: chest pain Time Seen by Provider: 07/24/20 06:19 Source: patient Mode of arrival: Ambulatory Limitations: no limitations History of Present Illness HPI narrative: Patient is a 80-year-old male who comes in for evaluation palpitations chest pressure. He states the symptoms started last evening. No real shortness of breath associated with the symptoms. States that he has an Apple watch which told him that he potentially was in atrial fibrillation. Upon review of his records it appears that he has had palpitations in the past as he has had a Holter monitor last year which showed what appeared to be PACs and occasional PVCs into runs of supraventricular tachycardia but no identifiable atrial fibrillation. He also had an echocardiogram and a nuclear medicine stress test in October of last year which is also been relatively unremarkable. He is being followed by Cardiology. He has never had a heart attack before not on anticoagulation. Is having symptoms at time my evaluation. Related Data Home Medications Medication Instructions Recorded Confirmed ASPIRIN (#ASPIRIN) 81 mg PO Q DAY #0 02/24/11 07/24/20 MULTIVITAMIN (One Daily #0 02/24/11 07/02/20 Multivitamin) chlorhexidine gluconate 0.12 % 1 applictn PO DAILY ml 08/12/18 07/02/20 mouthwash fluoride (sodium) 1.1 % dental 1 applictn DENTAL BID gram 08/12/18 07/02/20 cream saw palmetto 500 mg capsule 500 mg PO DAILY cap 08/12/18 07/02/20 albuterol sulfate 90 mcg/actuation 1 puff INHALATION SEE INSTRUCTIONS 03/27/19 07/24/20 aerosol inhaler PRN gram metoprolol succinate 25 mg 25 mg PO BID tab 03/14/20 07/02/20 tablet,extended release 24 hr omeprazole 20 mg capsule,delayed 20 mg PO DAILY cap 03/14/20 07/02/20 release lisinopril 10 mg PO 07/24/20 Previous Rx's Medication Instructions Recorded beclomethasone dipropionate 80 2 inhalation INHALATION BID #10.6 09/01/19 mcg/actuation HFA breath activated gram aerosol tamsulosin 0.4 mg capsule 0.4 mg PO BID #180 tab 12/18/19 primidone 50 mg tablet 25 mg PO BEDTIME #45 tab 04/08/20 rosuvastatin 40 mg tablet 40 mg PO DAILY #90 tab 04/15/20 Allergies Allergy/AdvReac Type Severity Reaction Status Date / Time No Known Allergies Allergy Uncoded 07/02/20 08:00 Review of Systems <Arsenio Rios DO - Last Filed: 07/24/20 17:57> Constitutional Constitutional: Denies chills and Denies fever(s) Cardiovascular Cardiovascular: Denies chest pain, Denies rapid heart rate, Reports irregular heart rhythm and Reports dyspnea Respiratory Respiratory: Denies cough and Reports dyspnea Gastrointestinal Gastrointestinal: Denies abdominal pain, Denies nausea and Denies vomiting Integumentary/Breasts Skin/Breast: Denies lesions and Reports rash Neurologic Neurologic: Denies behavioral changes Psychiatric Psychiatric: Denies behavioral changes Hematologic/Lymphatic On Anticoagulants: No Allergic/Immunologic Allergic/Immunologic: Denies urticaria Patient History <Arsenio Rios DO - Last Filed: 07/24/20 17:57> Medical History Arthritis Lala's esophagus Benign prostatic hyperplasia with urinary obstruction (10/24/13) Cardiac arrhythmia Cardiomyopathy (~11/2019) Elevated prostate specific antigen (PSA) (08/20/15) Erectile dysfunction Essential hypertension Essential tremor (02/22/17) Gastroesophageal reflux disease History of elevated PSA History of malignant melanoma (02/16/14) Hyperlipidemia (09/26/13) Hypertension Mild intermittent asthma without complication (06/29/13) Nodular prostate with lower urinary tract symptoms Surgical History History of circumcision History of esophagogastroduodenoscopy (EGD) (01/27/17) Status post appendectomy Status post tonsillectomy and adenoidectomy Family History Father Family history of stroke Social History marital status: number of children: 2 household members: spouse lives independently: Yes caregiver/support person: No housing: house pets and animals: No education level: college occupational status: other current occupational exposures/hazards: No Previous occupational history: Sales alfa/zoroastrianism: Muslim leisure activities: other Smoking Status: Former smoker Tobacco: How many years used: 25 Smokeless tobacco user: other quit status: quit date established second hand exposure: No alcohol intake: current substance use type: does not use caffeine: Yes Smoking Status: Former smoker Substance Use Type: does not use Exam <Arsenio Rios DO - Last Filed: 07/24/20 17:57> Initial Vital Signs Initial Vital Signs: Vital Signs Temperature 97.9 F 07/24/20 06:16 Pulse Rate 82 07/24/20 06:16 Respiratory Rate 17 07/24/20 06:16 Blood Pressure 176/79 H 07/24/20 06:16 Pulse Oximetry 98 07/24/20 06:16 Const General: cooperative, comfortable and well developed Limitations: mental status not altered HENMT Head: normal to inspection and normocephalic Resp Effort & Inspection: normal respiratory effort Auscultation: clear to auscultation bilaterally Cardio Rate: regular rate Rhythm: regular rhythm GI Inspection: non-distended Palpation: soft Skin Lesions: no lesions Rashes: no rashes Neuro General: patient alert, patient awake and patient oriented x3 Cognition: normal cognition Speech: speech normal Extrem General: normal to inspection and capillary refill normal Psych Appearance: grossly normal and well kempt <Yi Colindres MD - Last Filed: 07/24/20 09:23> Initial Vital Signs Initial Vital Signs: Vital Signs Temperature 97.9 F 07/24/20 06:16 Pulse Rate 82 07/24/20 06:16 Respiratory Rate 17 07/24/20 06:16 Blood Pressure 176/79 H 07/24/20 06:16 Pulse Oximetry 98 07/24/20 06:16 Course <Arsenio Rios DO - Last Filed: 07/24/20 17:57> Orders Ordered: Discontinued Medications Metoprolol Succinate (Metoprolol Er 25 Mg Tablet) 25 mg PO NOW ONE Stop: 07/24/20 07:43 Last Admin: 07/24/20 08:06 Dose: 25 mg Documented by: LAXMI Vital Signs Vital signs: Vital Signs - 8 hr 07/24/20 06:16 07/24/20 06:29 07/24/20 06:30 Temperature 97.9 F Pulse Rate 82 66 63 Respiratory Rate 17 13 19 Blood Pressure 176/79 H 122/59 L Pulse Oximetry 98 98 97 07/24/20 06:31 07/24/20 07:00 07/24/20 07:30 Temperature Pulse Rate 70 64 70 Respiratory Rate 25 H 12 20 Blood Pressure 122/59 L 125/59 L 142/63 H Pulse Oximetry 97 97 95 07/24/20 08:06 07/24/20 08:50 Temperature Pulse Rate 68 61 Respiratory Rate Blood Pressure 118/56 L 123/60 Pulse Oximetry <Yi Colindres MD - Last Filed: 07/24/20 09:23> Orders Ordered: Discontinued Medications Metoprolol Succinate (Metoprolol Er 25 Mg Tablet) 25 mg PO NOW ONE Stop: 07/24/20 07:43 Last Admin: 07/24/20 08:06 Dose: 25 mg Documented by: LAXMI Vital Signs Vital signs: Vital Signs - 8 hr 07/24/20 06:16 07/24/20 06:29 07/24/20 06:30 Temperature 97.9 F Pulse Rate 82 66 63 Respiratory Rate 17 13 19 Blood Pressure 176/79 H 122/59 L Pulse Oximetry 98 98 97 07/24/20 06:31 07/24/20 07:00 07/24/20 07:30 Temperature Pulse Rate 70 64 70 Respiratory Rate 25 H 12 20 Blood Pressure 122/59 L 125/59 L 142/63 H Pulse Oximetry 97 97 95 07/24/20 08:06 07/24/20 08:50 Temperature Pulse Rate 68 61 Respiratory Rate Blood Pressure 118/56 L 123/60 Pulse Oximetry MDM - Arrhythmia/Palpitations <Arsenio Rios DO - Last Filed: 07/24/20 17:57> Medical Records Attestation: I reviewed the patient's medical records. Lab Data Result diagrams: 07/24/20 06:25 07/24/20 06:25 Labs: Lab Results 07/24/20 07/24/20 07/24/20 Range/Units 06:25 06:25 08:21 WBC 7.9 (4.5-11.0) X10^3/uL RBC 4.50 (4.5-5.9) X10^6/uL Hgb 13.5 (13.5-17.5) g/dL Hct 40.9 L (41-53) % MCV 91.1 (80-100) fL MCH 30.1 (26-34) PG MCHC 33.0 (30-36) % RDW 13.1 (11.6-14.8) % Plt Count 176 (150-400) X10^3/uL Neut % (Auto) 66.9 (50-75) % Lymph % (Auto) 20.7 L (25-40) % [place] % (Auto) 7.5 (3-14) % Eos % (Auto) 4.0 (2-4) % Baso % (Auto) 0.9 (0-2) % Neut # (Auto) 5300 (8964-8555) /uL Lymph # (Auto) 1600 (9436-8597) /uL [place] # (Auto) 600 (0-900) /uL Eos # (Auto) 300 (0-450) /uL Baso # (Auto) 100 (0-100) /uL Sodium 138 (137-145) mmol/L Potassium 4.2 (3.4-5.1) mmol/L Chloride 103 (98-107) mmol/L Carbon Dioxide 29 (22-32) mmol/L BUN 14 (9-20) mg/dL Creatinine 0.82 (0.66-1.25) mg/dL Estimated GFR > 60.0 (>60) mL/min BUN/Creatinine Ratio 17.1 (6-22) Glucose 108 (80-110) mg/dL Calcium 9.2 (8.4-10.2) mg/dL Total Bilirubin 1.0 (0.2-1.3) mg/dL AST 28 (17-59) IU/L ALT 26 (<50) IU/L Alkaline Phosphatase 80 (38-126) U/L Total Creatine Kinase 150 130 (55-170) U/L CK-MB (CK-2) 1.96 1.88 (<2.37) ng/mL CK-MB (CK-2) Rel Index 1.3 L 1.4 L (1.5-5.0) % Troponin I < 0.012 < 0.012 (0.01-0.034) ng/mL Total Protein 6.8 (6.3-8.2) g/dL Albumin 4.2 (3.5-5.0) g/dL Globulin 2.6 (1.7-4.1) g/dL Albumin/Globulin Ratio 1.6 (1.0-2.8) Lipase 68 (23-300) U/L Imaging Data Chest x-ray: Radiologist's Impresson: No acute disease ECG Data Attestation: I personally reviewed and interpreted this ECG as follows: Prior ECG tracings: available for review Interpretation: Sinus rhythm Ventricular rate 86 Normal QRS Normal QTC One PVC Frequent PACs in a bigeminal pattern No ST T wave changes MDM Narrative Medical decision making narrative: Frequent PACs on the monitor. Labs pending chest x-ray pending. Care turned over to Dr. colindres at change of shift to follow up and disposition. <Yi Colindres MD - Last Filed: 07/24/20 09:23> Medical Records Attestation: I reviewed the patient's medical records. Lab Data Attestation: I reviewed the patient's lab results. Labs: Lab Results 07/24/20 07/24/20 07/24/20 Range/Units 06:25 06:25 08:21 WBC 7.9 (4.5-11.0) X10^3/uL RBC 4.50 (4.5-5.9) X10^6/uL Hgb 13.5 (13.5-17.5) g/dL Hct 40.9 L (41-53) % MCV 91.1 (80-100) fL MCH 30.1 (26-34) PG MCHC 33.0 (30-36) % RDW 13.1 (11.6-14.8) % Plt Count 176 (150-400) X10^3/uL Neut % (Auto) 66.9 (50-75) % Lymph % (Auto) 20.7 L (25-40) % [place] % (Auto) 7.5 (3-14) % Eos % (Auto) 4.0 (2-4) % Baso % (Auto) 0.9 (0-2) % Neut # (Auto) 5300 (1288-0894) /uL Lymph # (Auto) 1600 (7102-8407) /uL [place] # (Auto) 600 (0-900) /uL Eos # (Auto) 300 (0-450) /uL Baso # (Auto) 100 (0-100) /uL Sodium 138 (137-145) mmol/L Potassium 4.2 (3.4-5.1) mmol/L Chloride 103 (98-107) mmol/L Carbon Dioxide 29 (22-32) mmol/L BUN 14 (9-20) mg/dL Creatinine 0.82 (0.66-1.25) mg/dL Estimated GFR > 60.0 (>60) mL/min BUN/Creatinine Ratio 17.1 (6-22) Glucose 108 (80-110) mg/dL Calcium 9.2 (8.4-10.2) mg/dL Total Bilirubin 1.0 (0.2-1.3) mg/dL AST 28 (17-59) IU/L ALT 26 (<50) IU/L Alkaline Phosphatase 80 (38-126) U/L Total Creatine Kinase 150 130 (55-170) U/L CK-MB (CK-2) 1.96 1.88 (<2.37) ng/mL CK-MB (CK-2) Rel Index 1.3 L 1.4 L (1.5-5.0) % Troponin I < 0.012 < 0.012 (0.01-0.034) ng/mL Total Protein 6.8 (6.3-8.2) g/dL Albumin 4.2 (3.5-5.0) g/dL Globulin 2.6 (1.7-4.1) g/dL Albumin/Globulin Ratio 1.6 (1.0-2.8) Lipase 68 (23-300) U/L MDM Narrative Medical decision making narrative: Care is assumed Patient is seen and independently examined. He is pain and palpitation free at this time. He has had a reassuring myocardial perfusion scan in November of 2019. EKG with mildly reduced systolic function at 40-45%, event monitor in October of 2019 that showed frequent PACs and PVCs, a very brief 11 beat run of SVT versus atrial tachycardia that was likely atrial tachycardia. He continues to have palpitations and his Apple watch last night told him he was in atrial fibrilla tion. In looking at his rhythm today he is having very frequent PACs and significant sinus arrhythmia that very easily could be read by an Apple watch as atrial fibrillation and clearly is not. All the symptoms of resolved at this point. First and 2nd troponin are unremarkable. He recently had his metoprolol 25 mg extended release increased to 50 mg but has not yet started that, he remains on 10 mg of lisinopril. He has extensive blood pressure recordings from home that for the most part show systolics in the average 130 range with his low as 90 in as high as 160. Will have him split his metoprolol succinate to 25 b.i.d. and continue his lisinopril 10 mg daily. Will ask him to follow-up with Dr. Esquivel, his primary care physician regarding blood pressure and heart rate. He also has an appointment with Cardiology physician's assistant credit manager in early August. Reviewed findings extensive workup and reasons to return to the emergency department. He is clearly very reassured and safe for home discharge Discharge Plan Departure Patient Disposition: Home Clinical Impression: Cardiac arrhythmia Qualifiers: Arrhythmia type: other cardiac arrhythmia Qualified Code(s): I49.8 - Other specified cardiac arrhythmias Instructions: DI for Arrhythmias Activity Restrictions/Additional Instructions: Thank you for coming in today You are having very frequent premature atrial contractions. This is not a pathologic rhythm and not a rhythm that is going to causes a heart attack or significant concern for you. There is no evidence of atrial fibrillation or flutter today. There is enough irregularity with the frequent PACs noted today that I can absolutely understand your Apple watch telling you this is atrial fibrillation. Your blood work has been very reassuring. Your 1st troponin(the chemical looking at heart cell proteins that could indicate heart damage) and your 2nd troponin were both reassuringly normal. I am going to suggest that we increase your metoprolol again. 4 days ago you increaesed to 25mg am and pm. Today, I would like to increase to a total of 75mg and suggest that you split that up into 50mg in the morning and 25mg in the evening to see if that helps control the symptomatic arrhythmia for you. You said you currently have both the 25 mg size pills and the 50 mg pills you just refilled. Please continue all of your other medications as prescribed Please follow-up with Dr. Esquivle within the next week or 2 If you have arrhythmia and chest pain or diaphoresis or a sense of doom or clearly feel that you are worsening, those would all be very reasonable reasons to return to the ER for further evaluation. I wish you the best Prescriptions: No Action ASPIRIN (#ASPIRIN) 81 mg PO Q DAY Qty: 0 RF: 0 MULTIVITAMIN (One Daily Multivitamin) Qty: 0 RF: 0 Qvar RediHaler 80 mcg/actuation HFA aerosol breath activated 2 inhalation INHALATION BID Qty: 10.6 RF: 3 tamsulosin [Flomax] 0.4 mg capsule 0.4 mg PO BID Qty: 180 RF: 3 primidone 50 mg tablet 25 mg PO BEDTIME Qty: 45 RF: 3 rosuvastatin 40 mg tablet 40 mg PO DAILY Qty: 90 RF: 3 albuterol sulfate [Proventil HFA] 90 mcg/actuation HFA aerosol inhaler 1 puff inhalation SEE INSTRUCTIONS PRN (Reason: Shortness Of Breath Or Wheezing) RF: 0 Denta 5000 Plus 1.1 % cream 1 applictn Dental BID RF: 0 chlorhexidine gluconate 0.12 % mouthwash 1 applictn PO DAILY RF: 0 saw palmetto 500 mg capsule 500 mg PO DAILY RF: 0 metoprolol succinate 25 mg tablet extended release 24 hr 25 mg PO BID RF: 0 omeprazole 20 mg capsule,delayed release(DR/EC) 20 mg PO DAILY RF: 0 lisinopril 10 mg Tablet 10 mg PO RF: 0 Referrals: Henok Esquivel MD [Primary Care Provider] -
--- NOTE | 2020-07-24 06:21 | DI.RAD.S_ITS ---
PROCEDURE: XR CHEST 1V INDICATIONS: Chest pain TECHNIQUE: One view of the chest was acquired. COMPARISON: [facility], CR, XR CHEST 1V, 08/07/2019, 15:59. FINDINGS: Surgical changes and devices: None. Lungs and pleura: Lungs are clear. No pleural effusions or pneumothorax. Mediastinum: Mediastinal contours appear normal. Heart size is normal. Bones and chest wall: No suspicious bony lesions. Overlying soft tissues appear unremarkable. IMPRESSION: No acute cardiopulmonary disease process. Dictated by: Gloria Bran MD, PhD on 07/24/2020 at 8:36 Approved by: Gloria Bran MD, PhD on 07/24/2020 at 8:36
[2020-07-24 06:30] LABS: Add Manual Diff / Slide Review NO; Basophils Absolute Auto 100 /uL (0-100); Basophils Percent Auto 0.9 % (0-2); Eosinophils Absolute Auto 300 /uL (0-450); Hematocrit 40.9 % (41-53); Hemoglobin 13.5 g/dL (13.5-17.5); Lymphocytes Absolute Auto 1600 /uL (1100-4500); Lymphocytes Percent Auto 20.7 % (25-40); Mean Corpuscular Hemoglobin 30.1 PG (26-34); Mean Corpuscular Volume 91.1 fL (80-100); Monocytes Absolute Auto 600 /uL (0-900); Monocytes Percent Auto 7.5 % (3-14); Neutrophils Absolute Auto 5300 /uL (1500-7000); Neutrophils Percent Auto 66.9 % (50-75); Platelet Count 176 X10^3/uL (150-400); Red Cell Distribution Width 13.1 % (11.6-14.8); White Blood Cell Count 7.9 X10^3/uL (4.5-11.0)
[2020-07-24 06:46] LABS: Alanine Aminotransferase 26 IU/L (<50); Albumin 4.2 g/dL (3.5-5.0); Albumin Globulin Ratio 1.6 (1.0-2.8); Alkaline Phosphatase 80 U/L (38-126); Aspartate Aminotransferase 28 IU/L (17-59); BUN Creatinine Ratio 17.1 (6-22); Blood Urea Nitrogen 14 mg/dL (9-20); Calcium 9.2 mg/dL (8.4-10.2); Carbon Dioxide 29 mmol/L (22-32); Chloride 103 mmol/L (98-107); Creatine Kinase 150 U/L (55-170); Estimated Glomerular Filt Rate > 60.0 mL/min (>60); Globulin 2.6 g/dL (1.7-4.1); Glucose 108 mg/dL (80-110); HEMOLYSIS < 15 (0-50); Lipase 68 U/L (23-300); Potassium 4.2 mmol/L (3.4-5.1); Sodium 138 mmol/L (137-145); Total Protein 6.8 g/dL (6.3-8.2)
[2020-07-24 06:58] LABS: Troponin I < 0.012 ng/mL (0.01-0.034)
[2020-07-24 07:13] LABS: CKMB % Relative Index 1.3 % (1.5-5.0); Creatine Kinase MB 1.96 ng/mL (<2.37)
[2020-07-24] MEDS: METOPROLOL ER 25 MG TABLET PO (08:06)
--- NOTE | 2020-07-24 08:22 | PC.NURSE ---
Upon administration of metoprolol discovered patient has been taking 25mg AM and PM at home in order to increase dose to 50mg per carburetor rebuilder and use up 25mg tablets. Dr Velez updated on this, upon discussion with patient total dose will be increased to 75mg PO daily.
[2020-07-24 08:35] LABS: Creatine Kinase 130 U/L (55-170)
[2020-07-24 08:48] LABS: Troponin I < 0.012 ng/mL (0.01-0.034)
[2020-07-24 08:51] LABS: CKMB % Relative Index 1.4 % (1.5-5.0); Creatine Kinase MB 1.88 ng/mL (<2.37)
== END 2020-07-24 09:14 | disposition home or self-care (01) ==
PROVIDERS: Emergency Medicine; Emergency Provider Emergency Medicine; Family Provider Internal Medicine; PCP Internal Medicine
DX: I49.8 Other specified cardiac arrhythmias (principal)
CPT/HCPCS: 36415; 71045; 80053; 82550; 82553; 83690; 84484; 85025; 93005; 93010; 99284

== ENCOUNTER → 2020-12-09 09:23 | Outpatient (CLI) | payer MEDICARE, OTHER, SELFPAY ==
[2020-12-09 11:09] LABS: COVID19 -Nasal RAPID Negative (Negative)
== END ==
PROVIDERS: Family Provider Internal Medicine; PCP Internal Medicine; Visit Provider Nurse Practitioner
DX: R53.83 Other fatigue (principal); Z20.822 Contact with and (suspected) exposure to COVID-19
CPT/HCPCS: 87635

== ENCOUNTER 2020-12-10 15:47 | Emergency (ER) | payer MEDICARE, OTHER, SELFPAY ==
[2020-12-10 15:55] VITALS: BP 139/58; PULSE 104; RESP 18; TEMP 36.6; O2SAT 96
--- NOTE | 2020-12-10 15:59 | DI.RAD.S_ITS ---
PROCEDURE: XR CHEST 2V INDICATIONS: shortness of breath TECHNIQUE: 2 views of the chest were acquired. COMPARISON: [facility], CHEST 2 VIEW, 12/09/2015, 14:57. Located Within [facility], , XR CHEST 1V, 07/24/2020, 6:29. FINDINGS: Surgical changes and devices: None. Lungs and pleura: Poorly defined left-sided infiltrate can be seen, which appears to involve the superior portion of the left upper lobe as well as the superior segment of the left lower lobe. The right lung appears clear. No pneumothorax is seen. No large pleural effusion. Mediastinum: The cardiac contours are within normal limits. The aorta demonstrates calcification and tortuosity. Bones and chest wall: No suspicious bony abnormalities. Age-appropriate bony degenerative changes are seen. Soft tissues appear unremarkable. IMPRESSION: Left-sided infiltrate. Followup chest radiographs are recommended to complete resolution. If this abnormality does not completely resolve on plain film, then a chest CT with contrast would be recommended to evaluate for a potential underlying mass. Dictated by: Jerome Kaye M.D. on 12/10/2020 at 15:55 Approved by: Jerome Kaye M.D. on 12/10/2020 at 15:56
[2020-12-10 17:02] LABS: Add Manual Diff / Slide Review NO; Basophils Absolute Auto 100 /uL (0-100); Basophils Percent Auto 0.5 % (0-2); Eosinophils Absolute Auto 100 /uL (0-450); Eosinophils Percent Auto 0.6 % (2-4); Hematocrit 39.5 % (41-53); Hemoglobin 12.9 g/dL (13.5-17.5); Lymphocytes Absolute Auto 1100 /uL (1100-4500); Lymphocytes Percent Auto 7.6 % (25-40); Mean Corpuscular HGB Conc 32.6 % (30-36); Mean Corpuscular Hemoglobin 29.8 PG (26-34); Mean Corpuscular Volume 91.2 fL (80-100); Monocytes Absolute Auto 1600 /uL (0-900); Monocytes Percent Auto 10.6 % (3-14); Neutrophils Absolute Auto 12300 /uL (1500-7000); Neutrophils Percent Auto 80.7 % (50-75); Platelet Count 295 X10^3/uL (150-400); Red Blood Cell Count 4.33 X10^6/uL (4.5-5.9); Red Cell Distribution Width 13.1 % (11.6-14.8); White Blood Cell Count 15.2 X10^3/uL (4.5-11.0)
[2020-12-10 17:13] LABS: Alanine Aminotransferase 167 IU/L (<50); Albumin 3.9 g/dL (3.5-5.0); Alkaline Phosphatase 144 U/L (38-126); Aspartate Aminotransferase 124 IU/L (17-59); BUN Creatinine Ratio 17.4 (6-22); Bilirubin Total 0.8 mg/dL (0.2-1.3); Blood Urea Nitrogen 16 mg/dL (9-20); Calcium 8.8 mg/dL (8.4-10.2); Carbon Dioxide 28 mmol/L (22-32); Chloride 101 mmol/L (98-107); Estimated Glomerular Filt Rate > 60.0 mL/min (>60); Globulin 3.8 g/dL (1.7-4.1); Glucose 116 mg/dL (80-110); HEMOLYSIS < 15 (0-50); Lactate (Lactic Acid) 1.4 mmol/L (0.7-2.1); Potassium 3.9 mmol/L (3.4-5.1); Sodium 139 mmol/L (137-145); Total Protein 7.7 g/dL (6.3-8.2)
[2020-12-10 19:19] LABS: Procalcitonin 0.08 ng/mL (<0.5)
[2020-12-10 19:25] LABS: D Dimer 1913 ng/mL (<230)
[2020-12-10 19:35] LABS: COVID19 -Nasal RAPID Negative (Negative)
--- NOTE | 2020-12-10 20:32 | DI.CT.S_ITS ---
PROCEDURE: CT ANGIO CHEST PE PROTOCOL INDICATIONS: hemoptysis, tachycardia, critical D dimer TECHNIQUE: After the administration of intravenous contrast, 2 mm thick sections acquired from the pulmonary apices to the posterior costophrenic angles. 3-dimensional maximum intensity projection (MIP) coronal and sagittal reformats were then acquired through the thorax. For radiation dose reduction, the following was used: automated exposure control, adjustment of mA and/or kV according to patient size. COMPARISON: [facility], CR, XR CHEST 2V, 12/10/2020, 16:48. FINDINGS: Image quality: Excellent. Pulmonary arteries: Pulmonary arteries are normal in size, and demonstrate no intraluminal filling defects to suggest central pulmonary embolism. Lungs and pleura: There is mild centrilobular and paraseptal emphysema. Peripheral masslike opacities are seen in the lateral left upper lobe (73/5), measuring 4.5 cm AP x 3.1 cm TR x 4.6 cm CC, and in the superior segment of the left lower lobe abutting the fissure and extending to the hilum (148/5), measuring approximately 5.2 cm AP x 5.4 cm TR x 6.0 cm CC. There is septal thickening in the left lung base with pro pleural thickening and/or a small pleural effusion. The right lung is clear. No pneumothorax. Central and peripheral airways are patent. Mediastinum: Heart size is normal. Trace pericardial effusion is likely physiologic. Coronary artery atherosclerotic calcifications are present. Mildly increased number of small mediastinal and hilar lymph nodes, which are nonspecific and not significantly enlarged by CT size criteria. Thoracic aorta is normal in caliber and enhancement. Mild aortic atherosclerotic calcifications. Esophagus is normal in caliber, with a small hiatal hernia. Bones and chest wall: No suspicious bony lesions. Thyroid gland appears normal. No axillary or supraclavicular adenopathy. Abdomen: Visualized upper abdominal solid organs appear normal in the early arterial phase of enhancement. IMPRESSION: 1. No acute pulmonary embolus. 2. Peripheral masslike opacities in the left upper and lower lobes could represent an infectious or inflammatory process, but are more suspicious for lung neoplasms. Recommend correlation with clinical findings and possible percutaneous biopsy if malignancy is suspected. There is probable left basilar pleural thickening versus a trace left pleural effusion. 3. Mildly increased number of small mediastinal and hilar lymph nodes is nonspecific. 4. Mild centrilobular and paraseptal emphysema. Dictated by: Mustapha Rae M.D. on 12/10/2020 at 21:08 Approved by: Mustapha Rae M.D. on 12/10/2020 at 21:22
--- NOTE | 2020-12-10 21:49 | ED_ITS ---
HPI - URI/Sore Throat General Chief Complaint: Upper Respiratory Symptoms Stated Complaint: coughing up blood Time Seen by Provider: 12/10/20 18:45 Source: patient Mode of arrival: Ambulatory Limitations: no limitations History of Present Illness HPI Narrative: 80-year-old male former smoker with history of cardiomyopathy, blood pressure, GERD presents with his in the chief complaint of increasing cough for the last 4 days. He states he had some bloody sputum with clots today. He denies any measured fever but has had mild chills for the past few days. He denies runny nose or sore throat. He denies any chest pain, recent travel, history of cancer or blood clot. He takes no blood thinners. He states he has had a poor appetite and probably has lost a few lb over the past few days but denies any unexplained weight loss over the past few months or year. He denies any abdominal pain, diarrhea or constipation. Denies dysuria, frequency or urgency. Related Data Home Medications Medication Instructions Recorded Confirmed ASPIRIN (#ASPIRIN) 81 mg PO Q DAY #0 02/24/11 11/22/20 MULTIVITAMIN (One Daily #0 02/24/11 11/22/20 Multivitamin) chlorhexidine gluconate 0.12 % 1 applictn PO DAILY ml 08/12/18 11/22/20 mouthwash fluoride (sodium) 1.1 % dental 1 applictn DENTAL BID gram 08/12/18 11/22/20 cream saw palmetto 500 mg capsule 500 mg PO DAILY cap 08/12/18 11/22/20 omeprazole 20 mg capsule,delayed 20 mg PO DAILY cap 03/14/20 11/22/20 release lisinopril 10 mg tablet 10 mg PO 07/24/20 11/22/20 metoprolol succinate 25 mg 25 mg PO DAILY tab 11/22/20 11/22/20 tablet,extended release 24 hr metoprolol succinate 50 mg 50 mg PO DAILY tab 11/22/20 11/22/20 tablet,extended release 24 hr tamsulosin 0.4 mg capsule (Flomax) 0.4 mg PO DAILY tab 11/22/20 11/22/20 Previous Rx's Medication Instructions Recorded beclomethasone dipropionate 80 2 inhalation INHALATION BID #10.6 09/01/19 mcg/actuation HFA breath activated gram aerosol (Qvar RediHaler) primidone 50 mg tablet 25 mg PO BEDTIME #45 tab 04/08/20 rosuvastatin 40 mg tablet 40 mg PO DAILY #90 tab 04/15/20 albuterol sulfate 90 mcg/actuation 1 puff INHALATION Q4-6H PRN #8.5 g 11/22/20 aerosol inhaler (Proventil HFA) amoxicillin 875 mg-potassium 1 tab PO BID #20 tab 12/10/20 clavulanate 125 mg tablet (Augmentin) Allergies Allergy/AdvReac Type Severity Reaction Status Date / Time No Known Allergies Allergy Uncoded 11/22/20 09:53 Review of Systems Review of Systems Narrative: GENERAL: Denies chills, fatigue, malaise, fever, sweats. HEENT: Denies sinus pain, ear pain, sore throat, difficulty swallowing, dizziness. RESPIRATORY: See HPI CARDIOVASCULAR: Denies chest pain, palpitations, orthopnea, edema, GASTROINTESTINAL: Denies nausea, vomiting, abdominal pain, diarrhea, constipation, melena. : Denies dysuria, frequency, incontinence, hematuria, urinary retention. MUSCULOSKELETAL: denies weakness, joint pain, or bony pain SKIN: Denies rash, skin lesions, or other NEUROLOGIC: Denies weakness, headache, numbness, change in speech, confusion, seizures, incoordination. PSYCHIATRIC: No concerning psychosocial issues. 12 point review of systems is negative except for those stated above Patient History Medical History Arthritis Lala's esophagus Benign prostatic hyperplasia with urinary obstruction (10/24/13) Cardiac arrhythmia Cardiomyopathy (~11/2019) Elevated prostate specific antigen (PSA) (08/20/15) Erectile dysfunction Essential hypertension Essential tremor (02/22/17) Gastroesophageal reflux disease History of elevated PSA History of malignant melanoma (02/16/14) Hyperlipidemia (09/26/13) Hypertension Mild intermittent asthma without complication (06/29/13) Nodular prostate with lower urinary tract symptoms Surgical History History of circumcision History of esophagogastroduodenoscopy (EGD) (01/27/17) Status post appendectomy Status post tonsillectomy and adenoidectomy Family History Father Family history of stroke Social History marital status: number of children: 2 household members: spouse lives independently: Yes caregiver/support person: No housing: house pets and animals: No education level: college occupational status: other current occupational exposures/hazards: No 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 Well- developed patient, in mild distress. No signs of significant respiratory dist ress HEAD: Atraumatic. Normocephalic. EYES: Pupils equal round and reactive. Extraocular motions intact. No scleral icterus. No injection or drainage. ENT: Nose without bleeding, purulent drainage. Throat without erythema, tonsillar hypertrophy or exudate. Airway patent. NECK: Trachea midline. Non tender CARDIOVASCULAR: Regular rate and rhythm without murmurs, gallops, or rubs. RESPIRATORY: Faint crackles in left lung. No significant work of breathing, no use of intercostals or accessory muscles, no hypoxia GASTROINTESTINAL: Abdomen soft, non-tender, nondistended. EXTREMITIES: No edema or joint tenderness. BACK: Nontender without deformity or crepitance. No flank tenderness. NEURO: AOx3. SKIN: No rash or erythema of visible areas Initial Vital Signs Initial Vital Signs: Vital Signs Temperature 97.9 F 12/10/20 15:55 Pulse Rate 104 H 12/10/20 15:55 Respiratory Rate 18 12/10/20 15:55 Blood Pressure 139/58 L 12/10/20 15:55 Pulse Oximetry 96 12/10/20 15:55 Course Orders Ordered: ED Orders 12/10/20 19:00 D Dimer Stat 12/10/20 19:06 COVID19 -Nasal swab/Pre-Proc Stat 12/10/20 20:32 CT angio chest PE protocol Stat Discontinued Medications Amoxicillin/Clavulanate Potassium (Amoxicillin/Clav 875/125 Mg) 1 tab PO NOW ONE Stop: 12/10/20 22:57 Last Admin: 12/10/20 23:05 Dose: 1 tab Documented by: HILLARY Vital Signs Vital signs: Vital Signs - 8 hr 12/10/20 23:19 Pulse Rate 91 H Respiratory Rate 18 Blood Pressure 148/65 H Pulse Oximetry 93 MDM - URI/Sore Throat Lab Data Result diagrams: 12/10/20 16:10 12/10/20 16:10 Labs: Lab Results 12/10/20 12/10/20 12/10/20 Range/Units 16:10 16:10 16:10 WBC 15.2 H (4.5-11.0) X10^3/uL RBC 4.33 L (4.5-5.9) X10^6/uL Hgb 12.9 L (13.5-17.5) g/dL Hct 39.5 L (41-53) % MCV 91.2 (80-100) fL MCH 29.8 (26-34) PG MCHC 32.6 (30-36) % RDW 13.1 (11.6-14.8) % Plt Count 295 (150-400) X10^3/uL Neut % (Auto) 80.7 H (50-75) % Lymph % (Auto) 7.6 L (25-40) % Churchill % (Auto) 10.6 (3-14) % Eos % (Auto) 0.6 L (2-4) % Baso % (Auto) 0.5 (0-2) % Neut # (Auto) 82465 H (4052-4638) /uL Lymph # (Auto) 1100 (2884-0746) /uL Churchill # (Auto) 1600 H (0-900) /uL Eos # (Auto) 100 (0-450) /uL Baso # (Auto) 100 (0-100) /uL D-Dimer (<230) ng/mL Sodium 139 (137-145) mmol/L Potassium 3.9 (3.4-5.1) mmol/L Chloride 101 (98-107) mmol/L Carbon Dioxide 28 (22-32) mmol/L BUN 16 (9-20) mg/dL Creatinine 0.92 (0.66-1.25) mg/dL Estimated GFR > 60.0 (>60) mL/min BUN/Creatinine Ratio 17.4 (6-22) Glucose 116 H (80-110) mg/dL Lactate 1.4 (0.7-2.1) mmol/L Calcium 8.8 (8.4-10.2) mg/dL Total Bilirubin 0.8 (0.2-1.3) mg/dL AST 124 H (17-59) IU/L ALT 167 H (<50) IU/L Alkaline Phosphatase 144 H (38-126) U/L Total Creatine Kinase (55-170) U/L CK-MB (CK-2) CK-MB (CK-2) Rel Index Troponin I (0.01-0.034) ng/mL Total Protein 7.7 (6.3-8.2) g/dL Albumin 3.9 (3.5-5.0) g/dL Globulin 3.8 (1.7-4.1) g/dL Albumin/Globulin Ratio 1.0 (1.0-2.8) Procalcitonin (<0.5) ng/mL SARS-CoV-2 (PCR) (Negative) 12/10/20 12/10/20 12/10/20 Range/Units 16:10 16:10 19:00 WBC (4.5-11.0) X10^3/uL RBC (4.5-5.9) X10^6/uL Hgb (13.5-17.5) g/dL Hct (41-53) % MCV (80-100) fL MCH (26-34) PG MCHC (30-36) % RDW (11.6-14.8) % Plt Count (150-400) X10^3/uL Neut % (Auto) (50-75) % Lymph % (Auto) (25-40) % Churchill % (Auto) (3-14) % Eos % (Auto) (2-4) % Baso % (Auto) (0-2) % Neut # (Auto) (3128-9035) /uL Lymph # (Auto) (5952-7012) /uL Churchill # (Auto) (0-900) /uL Eos # (Auto) (0-450) /uL Baso # (Auto) (0-100) /uL D-Dimer 1913 H (<230) ng/mL Sodium (137-145) mmol/L Potassium (3.4-5.1) mmol/L Chloride (98-107) mmol/L Carbon Dioxide (22-32) mmol/L BUN (9-20) mg/dL Creatinine (0.66-1.25) mg/dL Estimated GFR (>60) mL/min BUN/Creatinine Ratio (6-22) Glucose (80-110) mg/dL Lactate (0.7-2.1) mmol/L Calcium (8.4-10.2) mg/dL Total Bilirubin (0.2-1.3) mg/dL AST (17-59) IU/L ALT (<50) IU/L Alkaline Phosphatase (38-126) U/L Total Creatine Kinase 73 (55-170) U/L CK-MB (CK-2) TNP CK-MB (CK-2) Rel Index TNP Troponin I < 0.012 (0.01-0.034) ng/mL Total Protein (6.3-8.2) g/dL Albumin (3.5-5.0) g/dL Globulin (1.7-4.1) g/dL Albumin/Globulin Ratio (1.0-2.8) Procalcitonin 0.08 (<0.5) ng/mL SARS-CoV-2 (PCR) (Negative) 12/10/20 Range/Units 19:06 WBC (4.5-11.0) X10^3/uL RBC (4.5-5.9) X10^6/uL Hgb (13.5-17.5) g/dL Hct (41-53) % MCV (80-100) fL MCH (26-34) PG MCHC (30-36) % RDW (11.6-14.8) % Plt Count (150-400) X10^3/uL Neut % (Auto) (50-75) % Lymph % (Auto) (25-40) % Churchill % (Auto) (3-14) % Eos % (Auto) (2-4) % Baso % (Auto) (0-2) % Neut # (Auto) (0411-0612) /uL Lymph # (Auto) (1412-0038) /uL Churchill # (Auto) (0-900) /uL Eos # (Auto) (0-450) /uL Baso # (Auto) (0-100) /uL D-Dimer (<230) ng/mL Sodium (137-145) mmol/L Potassium (3.4-5.1) mmol/L Chloride (98-107) mmol/L Carbon Dioxide (22-32) mmol/L BUN (9-20) mg/dL Creatinine (0.66-1.25) mg/dL Estimated GFR (>60) mL/min BUN/Creatinine Ratio (6-22) Glucose (80-110) mg/dL Lactate (0.7-2.1) mmol/L Calcium (8.4-10.2) mg/dL Total Bilirubin (0.2-1.3) mg/dL AST (17-59) IU/L ALT (<50) IU/L Alkaline Phosphatase (38-126) U/L Total Creatine Kinase (55-170) U/L CK-MB (CK-2) CK-MB (CK-2) Rel Index Troponin I (0.01-0.034) ng/mL Total Protein (6.3-8.2) g/dL Albumin (3.5-5.0) g/dL Globulin (1.7-4.1) g/dL Albumin/Globulin Ratio (1.0-2.8) Procalcitonin (<0.5) ng/mL SARS-CoV-2 (PCR) Negative (Negative) Imaging Data CT scan - chest: Radiologist's Impression: Arsenio Granda (David) 80 M [address] Scan ReportSigned Patient: Arsenio Granda EMR#: [id number]: 2Acct:[id number]/Sex: 80 / MDate of Service: 12/10/20Loc: EDAccession Number: [id number] Procedure: CT angio chest PE protocol Ordering Provider: Omid Oglesby D.O. PROCEDURE: CT ANGIO CHEST PE PROTOCOL INDICATIONS: hemoptysis, tachycardia, critical D dimer TECHNIQUE: After the administration of intravenous contrast, 2 mm thick sections acquired from the pulmonary apices to the posterior costophrenic angles. 3-dimensional maximum intensity projection (MIP) coronal and sagittal reformats were then acquired through the thorax. For radiation dose reduction, the following was used: automated exposure control, adjustment of mA and/or kV according to patient size. COMPARISON: [facility], CR, XR CHEST 2V, 12/10/2020, 16:48. FINDINGS: Image quality: Excellent. Pulmonary arteries: Pulmonary arteries are normal in size, and demonstrate no intraluminal filling defects to suggest central pulmonary embolism. Lungs and pleura: There is mild centrilobular and paraseptal emphysema. Peripheral masslike opacities are seen in the lateral left upper lobe (73/5), measuring 4.5 cm AP x 3.1 cm TR x 4.6 cm CC, and in the superior segment of the left lower lobe abutting the fissure and extending to the hilum (148/5), measuring approximately 5.2 cm AP x 5.4 cm TR x 6.0 cm CC. There is septal thickening in the left lung base with pro pleural thickening and/or a small pleural effusion. The right lung is clear. No pneumothorax. Central and peripheral airways are patent. Mediastinum: Heart size is normal. Trace pericardial effusion is likely physiologic. Coronary artery atherosclerotic calcifications are present. Mildly increased number of small mediastinal and hilar lymph nodes, which are nonspecific and not significa ntly enlarged by CT size criteria. Thoracic aorta is normal in caliber and enhancement. Mild aortic atherosclerotic calcifications. Esophagus is normal in caliber, with a small hiatal hernia. Bones and chest wall: No suspicious bony lesions. Thyroid gland appears normal. No axillary or supraclavicular adenopathy. Abdomen: Visualized upper abdominal solid organs appear normal in the early arterial phase of enhancement. IMPRESSION: 1. No acute pulmonary embolus. 2. Peripheral masslike opacities in the left upper and lower lobes could represent an infectious or inflammatory process, but are more suspicious for lung neoplasms. Recommend correlation with clinical findings and possible percutaneous biopsy if malignancy is suspected. There is probable left basilar pleural thickening versus a trace left pleural effusion. 3. Mildly increased number of small mediastinal and hilar lymph nodes is nonspecific. 4. Mild centrilobular and paraseptal emphysema. Dictated by: Mustapha Rae M.D. on 12/10/2020 at 21:08 Approved by: Mustapha Rae M.D. on 12/10/2020 at 21:22 ECG Data Interpretation: Chart Viewer Diagnostics DATE TYPE STATUS REF RANGE/AUTHOR Hx Today 20:32 ButchMustapha Today 15:59 Jerome Kaye 07/24/20 06:21 YinaGloria james 06/19/20 08:53 PeaBIRD Parks 05/29/20 10:39 Echo 11/22/19 13:54 ShahbazTyler dang 11/06/19 10:01 Sarah,Bhleyda 08/08/19 08:57 Jhonathan Barreto 08/08/19 08:57 ConstanceAlesha 08/07/19 16:04 Zoie Nolen 08/07/19 16:04 Zoie Nolen 80, M0 1940 REG ER, Main ED R12 83.915kg Upper Respiratory Symptoms Search Chart PrimaryCarePt 30Min Appt Only NonFormulary Not Included in Conflicts ONSET ~11/201909/26/13 06/29/13 10/24/13 02/16/14 08/20/15 02/22/17 Today 15:55 Arsenio Granda (David) 80 M [address] Scan ReportSigned Patient: Arsenio Granda EMR#: [id number]: 1940cct:[id number]/Sex: 80 / MDate of Service: 12/10/20Loc: EDAccession Number: [id number] Procedure: CT angio chest PE protocol Ordering Provider: Omid Oglesby D.O. PROCEDURE: CT ANGIO CHEST PE PROTOCOL INDICATIONS: hemoptysis, tachycardia, critical D dimer TECHNIQUE: After the administration of intravenous contrast, 2 mm thick sections acquired from the pulmonary apices to the posterior costophrenic angles. 3-dimensional maximum intensity projection (MIP) coronal and sagittal reformats were then acquired through the thorax. For radiation dose reduction, the following was used: automated exposure control, adjustment of mA and/or kV according to patient size. COMPARISON: [facility], CR, XR CHEST 2V, 12/10/2020, 16:48. FINDINGS: Image quality: Excellent. Pulmonary arteries: Pulmonary arteries are normal in size, and demonstrate no intraluminal filling defects to suggest central pulmonary embolism. Lungs and pleura: There is mild centrilobular and paraseptal emphysema. Peripheral masslike opacities are seen in the lateral left upper lobe (73/5), measuring 4.5 cm AP x 3.1 cm TR x 4.6 cm CC, and in the superior segment of the left lower lobe abutting the fissure and extending to the hilum (148/5), measuring approximately 5.2 cm AP x 5.4 cm TR x 6.0 cm CC. There is septal thickening in the left lung base with pro pleural thickening and/or a small pleural effusion. The right lung is clear. No pneumothorax. Central and peripheral airways are patent. Mediastinum: Heart size is normal. Trace pericardial effusion is likely physiologic. Coronary artery atherosclerotic calcifications are present. Mildly increased number of small mediastinal and hilar lymph nodes, which are nonspecific and not significantly enlarged by CT size criteria. Thoracic aorta is normal in caliber and enhancement. Mild aortic atherosclerotic calcifications. Esophagus is normal in caliber, with a small hiatal hernia. Bones and chest wall: No suspicious bony lesions. Thyroid gland appears normal. No axillary or supraclavicular adenopathy. Abdomen: Visualized upper abdominal solid organs appear normal in the early arterial phase of enhancement. IMPRESSION: 1. No acute pulmonary embolus. 2. Peripheral masslike opacities in the left upper and lower lobes could represent an infectious or inflammatory process, but are more suspicious for lung neoplasms. Recommend correlation with clinical findings and possible percutaneous biopsy if malignancy is suspected. There is probable left basilar pleural thickening vers us a trace left pleural effusion. 3. Mildly increased number of small mediastinal and hilar lymph nodes is nonspecific. 4. Mild centrilobular and paraseptal emphysema. Dictated by: Mustapha Rae M.D. on 12/10/2020 at 21:08 Approved by: Mustapha Rae M.D. on 12/10/2020 at 21:22 [facility] [place] Narrative Medical decision making narrative: Multiple diagnoses considered including community-acquired pneumonia given relatively recent symptoms, only 4 days with cough subjective fever and chills and elevated white blood cell count. Given patient's history of smoking in the presence of hemoptysis a D-dimer was ordered which is critically elevated. CT angiogram demonstrates no clot. Lung cancer also considered given patient's history of smoking and hemoptysis. Imaging is unclear about etiology of abnormal findings, however many elements of history and physical would point towards an infectious etiology, I have discussed with on-call physician for patient's PCP and we sure the opinion that treatment with antibiotics and close follow-up for resolution of symptoms is indicated. Patient and his understand and agree with the diagnosis and plan. Return precautions given and questions answered to their apparent satisfaction Discharge Plan Departure Patient Disposition: Home Clinical Impression: Cough with hemoptysis Pneumonia Qualifiers: Pneumonia type: due to unspecified organism Laterality: left Lung location: un specified part of lung Qualified Code(s): J18.9 - Pneumonia, unspecified [facility] Instructions: DI for Pneumonia -- Adult Activity Restrictions/Additional Instructions: *You have been diagnosed with [hemoptysis and likely pneumonia.] *What to do: *Please continue to take your regular medications as directed. [x ] New medication prescriptions sent to your pharmacy: [[facility] in [place]] [ ] New medication written as a paper prescription [ ] No new medications given *Please follow up with your primary care provider in 2-3 days, call for an appointment. Let them know you were seen in the Emergency Department and that we ask that you be seen in follow up. We will electronically transmit a record of today's note if your PCP is in our system *If you do not have a primary care provider please contact the [facility] Resource line at [phone]. They will ask some questions about your medical history and help get you set up with a doctor in the community. *Return to Emergency Department if you should have any new, worsening or concerning symptoms, such as [fever greater than 101 F, shaking chills, worsen ing pain, persistent vomiting or other bothersome symptoms] Prescriptions: New amoxicillin-pot clavulanate [Augmentin] 875-125 mg tablet 1 tab PO BID Qty: 20 RF: 0 No Action ASPIRIN (#ASPIRIN) 81 mg PO Q DAY Qty: 0 RF: 0 MULTIVITAMIN (One Daily Multivitamin) Qty: 0 RF: 0 Qvar RediHaler 80 mcg/actuation HFA aerosol breath activated 2 inhalation INHALATION BID Qty: 10.6 RF: 3 primidone 50 mg tablet 25 mg PO BEDTIME Qty: 45 RF: 3 rosuvastatin 40 mg tablet 40 mg PO DAILY Qty: 90 RF: 3 metoprolol succinate 50 mg tablet extended release 24 hr 50 mg PO DAILY RF: 0 tamsulosin [Flomax] 0.4 mg capsule 0.4 mg PO DAILY RF: 0 albuterol sulfate [Proventil HFA] 90 mcg/actuation HFA aerosol inhaler 1 puff inhalation Q4-6H PRN (Reason: Shortness Of Breath Or Wheezing) Qty: 8.5 RF: 6 Denta 5000 Plus 1.1 % cream 1 applictn Dental BID RF: 0 chlorhexidine gluconate 0.12 % mouthwash 1 applictn PO DAILY RF: 0 saw palmetto 500 mg capsule 500 mg PO DAILY RF: 0 omeprazole 20 mg capsule,delayed release(DR/EC) 20 mg PO DAILY RF: 0 metoprolol succinate 25 mg tablet extended release 24 hr 25 mg PO DAILY RF: 0 lisinopril 10 mg Tablet 10 mg PO RF: 0 Referrals: Henok Esquivel MD [Primary Care Provider] -
[2020-12-10 21:57] LABS: Creatine Kinase 73 U/L (55-170)
[2020-12-10 22:11] LABS: Troponin I < 0.012 ng/mL (0.01-0.034)
[2020-12-10] MEDS: AMOXICILLIN/CLAV 875/125 MG 1 TAB PO (23:05)
[2020-12-10 23:19] VITALS: BP 148/65; PULSE 91; RESP 18; O2SAT 93
== END 2020-12-10 23:19 | disposition home or self-care (01) ==
PROVIDERS: Emergency Medicine; Emergency Provider Emergency Medicine; Family Provider Internal Medicine; PCP Internal Medicine; Referring Provider Internal Medicine
DX: J18.9 Pneumonia, unspecified organism (principal); R04.2 Hemoptysis; J02.9 Acute pharyngitis, unspecified; Z20.822 Contact with and (suspected) exposure to COVID-19
CPT/HCPCS: 36415; 71046; 71275; 80053; 82550; 83605; 84145; 84484; 85025; 85379; 87635; 93005; 99284; C9803; Q9967

== ENCOUNTER → 2020-12-26 08:06 | Outpatient (CLI) | payer MEDICARE, OTHER, SELFPAY ==
[2020-12-26 08:58] LABS: Alanine Aminotransferase 92 IU/L (<50); Albumin 3.8 g/dL (3.5-5.0); Albumin Globulin Ratio 1.2 (1.0-2.8); Alkaline Phosphatase 106 U/L (38-126); Aspartate Aminotransferase 40 IU/L (17-59); BUN Creatinine Ratio 24.4 (6-22); Bilirubin Total 0.8 mg/dL (0.2-1.3); Blood Urea Nitrogen 20 mg/dL (9-20); Calcium 9.2 mg/dL (8.4-10.2); Carbon Dioxide 27 mmol/L (22-32); Chloride 104 mmol/L (98-107); Cholesterol 175 mg/dL (140-199); Estimated Glomerular Filt Rate > 60.0 mL/min (>60); Globulin 3.1 g/dL (1.7-4.1); Glucose 113 mg/dL (80-110); HDL Cholesterol 35 mg/dL (40-60); HEMOLYSIS < 15 (0-50); LDL Cholesterol Calculated 107 mg/dL (<100); Potassium 4.8 mmol/L (3.4-5.1); Sodium 138 mmol/L (137-145); Total Protein 6.9 g/dL (6.3-8.2); Triglycerides 165 mg/dL (35-150)
[2020-12-26 09:25] LABS: Prostate Specific Antigen 8.32 ng/mL (0.10-4.00)
== END ==
PROVIDERS: Specialist; Family Provider Internal Medicine; PCP Internal Medicine; Referring Provider Internal Medicine; Visit Provider Internal Medicine
DX: N13.8 Other obstructive and reflux uropathy (principal); N40.3 Nodular prostate with lower urinary tract symptoms; I10 Essential (primary) hypertension; E78.2 Mixed hyperlipidemia; N40.1 Benign prostatic hyperplasia with lower urinary tract symptoms; Z87.898 Personal history of other specified conditions; I42.8 Other cardiomyopathies; I49.8 Other specified cardiac arrhythmias
CPT/HCPCS: 36415; 80053; 80061; 84153; 84443

== ENCOUNTER → 2021-01-01 13:04 | Outpatient (CLI) | payer MEDICARE, OTHER, SELFPAY ==
--- NOTE | 2021-01-01 13:05 | DI.CT.S_ITS ---
PROCEDURE: CT CHEST W CON INDICATIONS: Re-eval new lung masses seen 12/10/20 on [address]A TECHNIQUE: After the administration of intravenous contrast, 5 mm thick sections acquired from the pulmonary apices to the posterior costophrenic angles. 1 mm axial lung, 5 mm thick coronal and sagittal reformats and 7 mm axial MIP were acquired. For radiation dose reduction, the following was used: automated exposure control, adjustment of mA and/or kV according to patient size. COMPARISON: [facility], CT, CT ANGIO CHEST PE PROTOCOL, 12/10/2020, 20:36. FINDINGS: Image quality: Excellent. Lungs and pleura: Mild centrilobular and paraseptal emphysema. Significant interval decrease in the size of a wedge-shaped peripheral area of consolidative density in the right upper lobe. This previously measured approximately 4.8 x 3.3 x 4.8 cm, and currently measures approximately 1.5 x 2.0 x 1.9 cm. Reference current images 34/5 and 75/3. Significant interval decrease in size of peripheral wedge-shaped consolidative density in the superior segment of the left lower lobe. This previously measured approximately 6.4 x 3.9 x 5.7 cm and currently measures approximately 3.0 x 4.0 x 2.8 cm. No new or increasing air space opacities. No pleural effusions or pneumothorax. Central and peripheral airways are patent and normal in caliber. Mediastinum: Heart size is normal. No pericardial effusion. Moderate coronary artery calcifications. No mediastinal or hilar adenopathy by size criteria. Thoracic aorta and central pulmonary arteries are normal in size. 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 Esophagus is normal in caliber. No hiatal hernia. Bones and chest wall: No suspicious bony lesions. No vertebral body compression fractures. No axillary or supraclavicular adenopathy by size criteria. Thyroid gland is unremarkable. Abdomen: Visualized upper abdominal solid organs appear normal. Upper abdominal bowel loops are normal in caliber. IMPRESSION: 1. Significant interval improvement in the size and appearance of 2 separate masslike consolidative densities in the left lung, 1 of which is in the upper lobe in the other of which is in the lower lobe. 2. Mild emphysematous change. 3. 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 Comment: Consider follow-up CT in 2-3 months to document resolution of left-sided masslike consolidative densities. Dictated by: Shyam Biggs M.D. on 01/01/2021 at 14:32 Approved by: Shyam Biggs M.D. on 01/01/2021 at 14:53
== END ==
PROVIDERS: Family Provider Internal Medicine; PCP Internal Medicine; Referring Provider Internal Medicine; Visit Provider Internal Medicine
DX: J18.9 Pneumonia, unspecified organism (principal); R91.8 Other nonspecific abnormal finding of lung field; J43.2 Centrilobular emphysema; I87.1 Compression of vein; I25.10 Atherosclerotic heart disease of native coronary artery without angina pectoris; N40.3 Nodular prostate with lower urinary tract symptoms; N52.9 Male erectile dysfunction, unspecified; R97.20 Elevated prostate specific antigen [PSA]
CPT/HCPCS: 51798; 71260; 81002; 99214; Q9967

== ENCOUNTER → 2021-03-26 08:47 | Outpatient (CLI) | payer MEDICARE, OTHER, SELFPAY ==
[2021-03-26 10:47] LABS: Prostate Specific Antigen 3.12 ng/mL (0.10-4.00)
== END ==
PROVIDERS: Family Provider Internal Medicine; PCP Internal Medicine; Referring Provider Specialist; Visit Provider Specialist
DX: R97.20 Elevated prostate specific antigen [PSA] (principal)
CPT/HCPCS: 36415; 84153

== ENCOUNTER → 2021-04-09 11:11 | Outpatient (CLI) | payer MEDICARE, OTHER, SELFPAY ==
[2021-04-09 13:13] LABS: BUN Creatinine Ratio 17.4 (6-22); Blood Urea Nitrogen 16 mg/dL (9-20); Estimated Glomerular Filt Rate > 60.0 mL/min (>60)
== END ==
PROVIDERS: Family Provider Internal Medicine; PCP Internal Medicine; Referring Provider Internal Medicine; Visit Provider Internal Medicine
DX: Z01.812 Encounter for preprocedural laboratory examination (principal)
CPT/HCPCS: 36415; 82565; 84520

== ENCOUNTER → 2021-04-11 11:16 | Outpatient (CLI) | payer MEDICARE, OTHER, SELFPAY ==
--- NOTE | 2021-04-11 11:17 | DI.CT.S_ITS ---
PROCEDURE: CT CHEST WO CON INDICATIONS: pneumonia and lung mass TECHNIQUE: Noncontrast 5 mm thick sections acquired from the pulmonary apices to the posterior costophrenic angles. 1 mm lung window, 5 mm thick coronal and sagittal and 7 mm axial MIP reformats were then acquired. For radiation dose reduction, the following was used: automated exposure control, adjustment of mA and/or kV according to patient size. COMPARISON: [facility], CT, CT ANGIO CHEST PE PROTOCOL, 12/10/2020, 20:36. FINDINGS: Image quality: Excellent. Lungs and pleura: Paraseptal and centrilobular emphysematous changes. Pleural based scar faint ground-glass density is seen in the left upper lobe (series 3, image 84). No consolidation, pleural effusions or pneumothorax. Central and peripheral airways are patent and normal in caliber. Mediastinum: Heart size is normal. No pericardial effusion. Mild coronary artery calcification. No mediastinal adenopathy by size criteria. Thoracic aorta and central pulmonary arteries are normal in size. Mild atheromatous change of the aorta. Esophagus is normal in caliber. No hiatal hernia. Bones and chest wall: No suspicious bony lesions. No vertebral body compression fractures. No axillary or supraclavicular adenopathy by size criteria. Thyroid gland appears homogeneous. Abdomen: No significant abnormality. IMPRESSION: 1. Pleural based scar with faint ground-glass density in the left upper lobe, which may reflect resolving pneumonic infiltrate. Consider CT follow up to resolution. Dictated by: Vincenzo Shetty M.D. on 04/11/2021 at 12:06 Approved by: Vincenzo Shetty M.D. on 04/11/2021 at 12:36
== END ==
PROVIDERS: Family Provider Internal Medicine; PCP Internal Medicine; Referring Provider Internal Medicine; Visit Provider Internal Medicine
DX: J18.9 Pneumonia, unspecified organism (principal); R91.8 Other nonspecific abnormal finding of lung field; R91.1 Solitary pulmonary nodule
CPT/HCPCS: 71250

== ENCOUNTER → 2021-07-18 09:23 | Outpatient (CLI) | payer MEDICARE, OTHER, SELFPAY ==
[2021-07-18 11:45] LABS: COVID-19 CEPHEID PCR (VTM/NP) Negative (Negative)
== END ==
PROVIDERS: Family Provider Internal Medicine; PCP Internal Medicine; Visit Provider Nurse Practitioner Family
DX: Z20.822 Contact with and (suspected) exposure to COVID-19 (principal)
CPT/HCPCS: C9803; U0003; U0005

== ENCOUNTER → 2021-10-21 09:28 | Outpatient (CLI) | payer MEDICARE, OTHER, SELFPAY ==
[2021-10-21 11:18] LABS: Alanine Aminotransferase 47 IU/L (<50); Albumin 4.3 g/dL (3.5-5.0); Albumin Globulin Ratio 1.8 (1.0-2.8); Alkaline Phosphatase 68 U/L (38-126); Aspartate Aminotransferase 34 IU/L (17-59); BUN Creatinine Ratio 16.7 (6-22); Bilirubin Total 0.9 mg/dL (0.2-1.3); Blood Urea Nitrogen 15 mg/dL (9-20); Calcium 9.2 mg/dL (8.4-10.2); Carbon Dioxide 29 mmol/L (22-32); Chloride 103 mmol/L (98-107); Cholesterol 160 mg/dL (140-199); Estimated Glomerular Filt Rate > 60 mL/min (>60); Globulin 2.4 g/dL (1.7-4.1); Glucose 99 mg/dL (80-110); HDL Cholesterol 54 mg/dL (40-60); HEMOLYSIS < 15 (0-50); LDL Cholesterol Calculated 77 mg/dL (<100); Potassium 5.2 mmol/L (3.4-5.1); Sodium 139 mmol/L (137-145); Total Protein 6.7 g/dL (6.3-8.2); Triglycerides 144 mg/dL (35-150)
== END ==
PROVIDERS: Family Provider Internal Medicine; PCP Internal Medicine; Referring Provider Internal Medicine; Visit Provider Internal Medicine
DX: E78.2 Mixed hyperlipidemia (principal); I10 Essential (primary) hypertension; I42.8 Other cardiomyopathies
CPT/HCPCS: 36415; 80053; 80061

== ENCOUNTER → 2022-10-06 07:20 | Outpatient (CLI) | payer MEDICARE, OTHER, SELFPAY ==
[2022-10-06 08:36] LABS: Alanine Aminotransferase 25 IU/L (<50); Albumin 4.2 g/dL (3.5-5.0); Albumin Globulin Ratio 1.4 (1.0-2.8); Alkaline Phosphatase 68 U/L (38-126); Aspartate Aminotransferase 27 IU/L (17-59); BUN Creatinine Ratio 18.9 (6-22); Blood Urea Nitrogen 17 mg/dL (9-20); Calcium 8.8 mg/dL (8.4-10.2); Carbon Dioxide 31 mmol/L (22-32); Chloride 102 mmol/L (98-107); Cholesterol 167 mg/dL (140-199); Estimated Glomerular Filt Rate > 60 mL/min (>60); Globulin 2.9 g/dL (1.7-4.1); Glucose 104 mg/dL (80-110); HDL Cholesterol 46 mg/dL (40-60); HEMOLYSIS < 15 (0-50); LDL Cholesterol Calculated 95 mg/dL (<100); Potassium 4.3 mmol/L (3.4-5.1); Sodium 138 mmol/L (137-145); Total Protein 7.1 g/dL (6.3-8.2); Triglycerides 131 mg/dL (35-150)
== END ==
PROVIDERS: Family Provider Internal Medicine; PCP Internal Medicine; Referring Provider Internal Medicine; Visit Provider Internal Medicine
DX: E78.2 Mixed hyperlipidemia (principal); I10 Essential (primary) hypertension
CPT/HCPCS: 36415; 80053; 80061

== ENCOUNTER → 2023-04-05 08:34 | Outpatient (CLI) | payer MEDICARE, OTHER, SELFPAY ==
[2023-04-05 09:26] LABS: Alanine Aminotransferase 25 IU/L (<50); Albumin 4.2 g/dL (3.5-5.0); Albumin Globulin Ratio 1.3 (1.0-2.8); Alkaline Phosphatase 73 U/L (38-126); Aspartate Aminotransferase 28 IU/L (17-59); BUN Creatinine Ratio 17.8 (6-22); Blood Urea Nitrogen 16 mg/dL (9-20); Calcium 9.4 mg/dL (8.4-10.2); Carbon Dioxide 33 mmol/L (22-32); Chloride 102 mmol/L (98-107); Cholesterol 187 mg/dL (140-199); Estimated Glomerular Filt Rate > 60 mL/min (>60); Globulin 3.2 g/dL (1.7-4.1); Glucose 109 mg/dL (80-110); HDL Cholesterol 46 mg/dL (40-60); HEMOLYSIS < 15 (0-50); LDL Cholesterol Calculated 111 mg/dL (<100); Potassium 4.3 mmol/L (3.4-5.1); Sodium 137 mmol/L (137-145); Total Protein 7.4 g/dL (6.3-8.2); Triglycerides 151 mg/dL (35-150)
== END ==
PROVIDERS: Family Provider Internal Medicine; PCP Internal Medicine; Referring Provider Internal Medicine; Visit Provider Internal Medicine
DX: I42.9 Cardiomyopathy, unspecified (principal); I10 Essential (primary) hypertension; I49.9 Cardiac arrhythmia, unspecified; E78.5 Hyperlipidemia, unspecified
CPT/HCPCS: 36415; 80053; 80061

== ENCOUNTER → 2023-09-22 13:39 | Outpatient (CLI) | payer MEDICARE, OTHER, SELFPAY ==
--- NOTE | 2023-09-22 13:41 | DI.RAD.S_ITS ---
PROCEDURE: XR CHEST 2V INDICATIONS: Rhonchi, cough TECHNIQUE: 2 views of the chest were acquired. COMPARISON: , , CHEST 2 VIEW, 03/27/2008, 14:39. FINDINGS: Surgical changes and devices: None. Lungs and pleura: Ill-defined airspace opacity in left retrocardiac region is seen. Right lung is clear. No pleural effusions or pneumothorax. Mediastinum: Mediastinal contours are normal. Heart size is normal. Bones and chest wall: No suspicious bony abnormalities. Soft tissues appear unremarkable. IMPRESSION: Finding is suggestive of left lower lobe infiltrate. No pleural effusion or pneumothorax. Dictated by: Iain Paulino M.D. on 09/22/2023 at 14:23 Approved by: Iain Paulino M.D. on 09/22/2023 at 14:30
== END ==
PROVIDERS: Family Provider Internal Medicine; PCP Internal Medicine; Referring Provider Physician Assistant Surgical; Visit Provider Physician Assistant Surgical
DX: R05.9 Cough, unspecified (principal)
CPT/HCPCS: 71046

== ENCOUNTER 2023-09-23 18:13 | Emergency (ER) | payer MEDICARE, OTHER, SELFPAY ==
[2023-09-23 18:23] VITALS: BP 135/67; PULSE 88; RESP 16; TEMP 36.8; O2SAT 96; BMI 24.8
--- NOTE | 2023-09-23 19:35 | ED.GENADULT ---
HPI - General Adult General Chief complaint: Upper Respiratory Symptoms Stated complaint: Coughing Blood Time Seen by Provider: 09/23/23 19:20 Source: patient Mode of arrival: Ambulatory History of Present Illness HPI narrative: 83-year-old male who is here for evaluation of coughing up blood-tinged sputum. He was seen yesterday in the walk-in clinic. Was diagnosed with pneumonia. Is on antibiotics. He stated that he has had a productive cough. Today he coughed up some sputum that was blood-tinged. When he read the return precautions from the information that he was given he decided to come in to be evaluated. He was on an aspirin but no other anticoagulation. No fevers. No shortness of breath. No chest pain. States overall he does feel well. Related Data Home Medications Medication Instructions Recorded Confirmed ASPIRIN (#ASPIRIN) 81 mg PO Q DAY ##0 02/24/11 09/22/23 MULTIVITAMIN (One Daily ##0 02/24/11 09/22/23 Multivitamin) saw palmetto 500 mg capsule 500 mg PO DAILY 08/12/18 09/22/23 omeprazole 20 mg capsule,delayed 20 mg PO DAILY 03/14/20 09/22/23 release lisinopril 10 mg tablet 10 mg PO 07/24/20 09/22/23 metoprolol succinate 25 mg 25 mg PO DAILY 11/22/20 09/22/23 tablet,extended release 24 hr metoprolol succinate 50 mg 50 mg PO DAILY 11/22/20 09/22/23 tablet,extended release 24 hr Previous Rx's Medication Instructions Recorded albuterol sulfate 90 mcg/actuation 1 puff inhalation Q4-6H PRN 03/25/22 aerosol inhaler (Proventil HFA) Shortness Of Breath Or Wheezing #8.5 grams beclomethasone dipropionate 80 2 inh inhalation BID #10.6 grams 10/06/22 mcg/actuation HFA breath activated aerosol (Qvar RediHaler) primidone 50 mg tablet 25 mg (1/2 x 50 mg) PO BEDTIME #45 03/24/23 tabs tadalafil 20 mg tablet 10 - 20 mg (0.5 - 1 x 20 mg) PO 04/06/23 DAILY PRN sexual activity #5 tabs tamsulosin 0.4 mg capsule (Flomax) 0.4 mg PO DAILY #90 tabs 07/19/23 rosuvastatin 40 mg tablet 40 mg PO DAILY #90 tabs 08/11/23 amoxicillin 875 mg-potassium 1 tab PO TID 10 days #30 tabs 09/22/23 clavulanate 125 mg tablet benzonatate 200 mg capsule 200 mg PO BID PRN cough #30 caps 09/22/23 doxycycline monohydrate 100 mg 100 mg PO BID 10 days #20 caps 09/22/23 capsule Allergies Allergy/AdvReac Type Severity Reaction Status Date / Time No Known Allergies Allergy Uncoded 09/22/23 13:02 Review of Systems Review of Systems Narrative: See HPI Patient History Medical History Erectile dysfunction Nodular prostate with lower urinary tract symptoms Hypertension Arthritis Cardiomyopathy (~11/2019) Cardiac arrhythmia Lala's esophagus Essential tremor (02/22/17) Elevated prostate specific antigen (PSA) (08/20/15) History of malignant melanoma (02/16/14) Benign prostatic hyperplasia with urinary obstruction (10/24/13) Hyperlipidemia (09/26/13) Mild intermittent asthma without complication (06/29/13) Gastroesophageal reflux disease Essential hypertension Surgical History History of circumcision History of esophagogastroduodenoscopy (EGD) (01/27/17) Status post tonsillectomy and adenoidectomy Status post appendectomy Family History Father Family history of stroke Social History marital status: number of children: 2 household members: spouse lives independently: Yes caregiver/support person: No housing: house pets and animals: No education level: college occupational status: other current occupational exposures/hazards: No 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: [employer] leisure activities: other Smoking Status: Former smoker Tobacco: How many years used: 25 Smokeless tobacco user: other quit status: quit date established second hand exposure: No alcohol intake: current substance use type: does not use caffeine: Yes Smoking Status: Former smoker alcohol intake frequency: 0-2 drinks per day Substance Use Type: does not use Exam Initial Vital Signs Initial Vital Signs: Vital Signs Temperature 98.3 F 09/23/23 18:23 Pulse Rate 88 09/23/23 18:23 Respiratory Rate 16 09/23/23 18:23 Blood Pressure 135/67 09/23/23 18:23 Pulse Oximetry 96 09/23/23 18:23 Oxygen Delivery Method Room Air 09/23/23 18:23 Const General: cooperative and comfortable HENMT Head: normal to inspection and normocephalic Resp Effort & Inspection: normal respiratory effort Auscultation: rhonchi and wheezes Cardio Rate: regular rate Skin General: no rashes or lesions noted Course Orders Ordered: ED Orders 09/23/23 19:37 Sputum Culture Stat Vital Signs Vital signs: Vital Signs - 8 hr 09/23/23 18:23 09/23/23 19:48 Temperature 98.3 F 98.4 F Pulse Rate 88 88 Respiratory Rate 16 16 Blood Pressure 135/67 142/66 H Pulse Oximetry 96 98 Oxygen Delivery Method Room Air Room Air Medical Decision Making MDM Narrative Medical decision making narrative: He does have wheezing but he is also on inhalers at home. He has not having any shortness of breath. He did produce a sputum for us today which we will send to the lab for culture although he was currently on antibiotics. No indication to change those today. There was a small amount of blood in the sputum that he produced. I do not feel that we need to repeat a chest x-ray. Provided reassurance to the patient. Discussed return precautions and follow-up instructions. He expressed understanding and agreement. Discharge Plan Departure Patient Disposition: Home Clinical Impression: Pneumonia Instructions: DI for Pneumonia -- Adult Activity Restrictions/Additional Instructions: Continue to take the antibiotics as directed. Continue the rest of your medications as directed to include your inhalers. Return to the emergency department for new or worsening symptoms. Prescriptions: No Action benzonatate 200 mg capsule 200 mg PO BID PRN (Reason: cough) Qty: 30 0RF amoxicillin-pot clavulanate 875-125 mg tablet 1 tab PO TID 10 Days Qty: 30 0RF doxycycline monohydrate 100 mg capsule 100 mg PO BID 10 Days Qty: 20 0RF ASPIRIN (#ASPIRIN) 81 mg PO Q DAY Qty: 0 MULTIVITAMIN (One Daily Multivitamin) Qty: 0 albuterol sulfate [Proventil HFA] 90 mcg/actuation HFA aerosol inhaler 1 puff inhalation Q4-6H PRN (Reason: Shortness Of Breath Or Wheezing) Qty: 8.5 6RF primidone 50 mg tablet 25 mg PO BEDTIME Qty: 45 3RF tamsulosin [Flomax] 0.4 mg capsule 0.4 mg PO DAILY Qty: 90 3RF rosuvastatin 40 mg tablet 40 mg PO DAILY Qty: 90 2RF metoprolol succinate 50 mg tablet extended release 24 hr 50 mg PO DAILY Rx Instructions: Total of 75mg w/25 mg dose. Qvar RediHaler 80 mcg/actuation HFA aerosol breath activated 2 inh INHALATION BID Qty: 10.6 3RF tadalafil 20 mg tablet 10 - 20 mg PO DAILY PRN (Reason: sexual activity) Qty: 5 0RF Rx Instructions: administer approximately 30min before sexual activity; do not use more than 1 dose per 24hrs saw palmetto 500 mg capsule 500 mg PO DAILY omeprazole 20 mg capsule,delayed release(DR/EC) 20 mg PO DAILY metoprolol succinate 25 mg tablet extended release 24 hr 25 mg PO DAILY Rx Instructions: Takes total of 75mg daily//takes w/50 mg tab lisinopril 10 mg Tablet 10 mg PO Referrals: Henok Esquivel MD [Primary Care Provider] - Stand Alone Forms: Patient Portal/API
[2023-09-23 19:48] VITALS: BP 142/66; PULSE 88; RESP 16; TEMP 36.9; O2SAT 98
== END 2023-09-23 19:50 | disposition home or self-care (01) ==
PROVIDERS: Emergency Provider Emergency Medicine; Family Provider Internal Medicine; PCP Internal Medicine
DX: J18.9 Pneumonia, unspecified organism (principal); Z87.891 Personal history of nicotine dependence
CPT/HCPCS: 87070; 87205; 99282

== ENCOUNTER → 2023-10-06 07:55 | Outpatient (CLI) | payer MEDICARE, OTHER, SELFPAY ==
[2023-10-06 09:37] LABS: Alanine Aminotransferase 44 IU/L (<50); Albumin 3.9 g/dL (3.5-5.0); Albumin Globulin Ratio 1.8 (1.0-2.8); Alkaline Phosphatase 81 U/L (38-126); Aspartate Aminotransferase 34 IU/L (17-59); BUN Creatinine Ratio 17.9 (6-22); Bilirubin Total 0.8 mg/dL (0.2-1.3); Blood Urea Nitrogen 14 mg/dL (9-20); Carbon Dioxide 29 mmol/L (22-32); Chloride 105 mmol/L (98-107); Cholesterol 155 mg/dL (140-199); Estimated Glomerular Filt Rate > 60 mL/min (>60); Globulin 2.2 g/dL (1.7-4.1); Glucose 102 mg/dL (80-110); HDL Cholesterol 43 mg/dL (40-60); HEMOLYSIS < 15 (0-50); LDL Cholesterol Calculated 81 mg/dL (<100); Potassium 4.6 mmol/L (3.4-5.1); Sodium 138 mmol/L (137-145); Total Protein 6.1 g/dL (6.3-8.2); Triglycerides 156 mg/dL (35-150)
[2023-10-06 10:00] LABS: TSH w/ Reflex to FT4 0.89 uIU/mL (0.47-4.68)
== END ==
PROVIDERS: Family Provider Internal Medicine; PCP Internal Medicine; Referring Provider Internal Medicine; Visit Provider Internal Medicine
DX: I10 Essential (primary) hypertension (principal); E78.5 Hyperlipidemia, unspecified; J45.20 Mild intermittent asthma, uncomplicated
CPT/HCPCS: 36415; 80053; 80061; 84443

== ENCOUNTER → 2024-10-04 07:31 | Outpatient (CLI) | payer MEDICARE, OTHER, SELFPAY ==
[2024-10-04 08:31] LABS: Add Manual Diff / Slide Review NO; Basophils Absolute Auto 100 /uL (0-100); Basophils Percent Auto 0.7 % (0-2); Eosinophils Absolute Auto 200 /uL (0-450); Eosinophils Percent Auto 2.4 % (2-4); Lymphocytes Absolute Auto 1600 /uL (1100-4500); Lymphocytes Percent Auto 20.5 % (25-40); Mean Corpuscular HGB Conc 33.3 % (30-36); Mean Corpuscular Volume 93.1 fL (80-100); Monocytes Absolute Auto 500 /uL (0-900); Monocytes Percent Auto 6.2 % (3-14); Neutrophils Absolute Auto 5600 /uL (1500-7000); Neutrophils Percent Auto 70.2 % (50-75); Platelet Count 195 X10^3/uL (150-400); Red Blood Cell Count 4.51 X10^6/uL (4.5-5.9); Red Cell Distribution Width 13.1 % (11.6-14.8)
[2024-10-04 08:51] LABS: Alanine Aminotransferase 21 IU/L (<50); Albumin 4.6 g/dL (3.5-5.0); Albumin Globulin Ratio 2.2 (1.0-2.8); Alkaline Phosphatase 79 U/L (38-126); Aspartate Aminotransferase 27 IU/L (17-59); BUN Creatinine Ratio 22.5 (6-22); Blood Urea Nitrogen 20 mg/dL (9-20); Calcium 9.2 mg/dL (8.4-10.2); Carbon Dioxide 26 mmol/L (22-32); Chloride 104 mmol/L (98-107); Cholesterol 190 mg/dL (140-199); Estimated Glomerular Filt Rate > 60 mL/min (>60); Globulin 2.1 g/dL (1.7-4.1); Glucose 93 mg/dL (70-99); HDL Cholesterol 51 mg/dL (40-60); HEMOLYSIS < 15 (0-50); LDL Cholesterol Calculated 112 mg/dL (<100); Potassium 4.5 mmol/L (3.4-5.1); Sodium 137 mmol/L (137-145); Total Protein 6.7 g/dL (6.3-8.2); Triglycerides 136 mg/dL (35-150)
== END ==
PROVIDERS: Family Provider Internal Medicine; PCP Internal Medicine; Referring Provider Internal Medicine; Visit Provider Internal Medicine
DX: I10 Essential (primary) hypertension (principal); E78.5 Hyperlipidemia, unspecified; G25.0 Essential tremor
CPT/HCPCS: 36415; 80053; 80061; 85025

== ENCOUNTER → 2025-04-02 08:02 | Outpatient (CLI) | payer MEDICARE, OTHER, SELFPAY ==
[2025-04-02 08:49] LABS: Add Manual Diff / Slide Review NO; Hematocrit 41.8 % (41-53); Hemoglobin 14.0 g/dL (13.5-17.5); Lymphocytes Absolute Auto 1100 /uL (1100-4500); Mean Corpuscular HGB Conc 33.4 % (30-36); Mean Corpuscular Hemoglobin 30.6 PG (26-34); Mean Corpuscular Volume 91.6 fL (80-100); Platelet Count 174 X10^3/uL (150-400)
[2025-04-02 09:06] LABS: Alanine Aminotransferase 24 IU/L (<50); Albumin 4.6 g/dL (3.5-5.0); Albumin Globulin Ratio 1.8 (1.0-2.8); Alkaline Phosphatase 68 U/L (38-126); Blood Urea Nitrogen 16 mg/dL (9-20); Calcium 9.2 mg/dL (8.4-10.2); Carbon Dioxide 28 mmol/L (22-32); Chloride 104 mmol/L (98-107); Cholesterol 202 mg/dL (140-199); Estimated Glomerular Filt Rate > 60 mL/min (>60); Globulin 2.6 g/dL (1.7-4.1); Glucose 106 mg/dL (70-99); HDL Cholesterol 64 mg/dL (40-60); HEMOLYSIS 30 (0-50); Potassium 4.8 mmol/L (3.4-5.1); Sodium 138 mmol/L (137-145); Total Protein 7.2 g/dL (6.3-8.2); Triglycerides 134 mg/dL (35-150)
== END ==
PROVIDERS: Family Provider Internal Medicine; PCP Internal Medicine; Referring Provider Internal Medicine; Visit Provider Internal Medicine
DX: I10 Essential (primary) hypertension (principal); E78.2 Mixed hyperlipidemia; I42.8 Other cardiomyopathies
CPT/HCPCS: 36415; 80053; 80061; 85025